=== PATIENT | male | born 1940 | race Caucasian/White ===

== ENCOUNTER 2016-09-24 05:57 | Day surgery (SDC) | payer MEDICARE ==
[2016-09-24] MEDS ORDERED: Bacitracin Oint 1 GM U/D Packet ONE (06:50)
[2016-09-24] MEDS ORDERED: Lidocaine 1% with EPINEPHrine 1:100,000 50 ML MDV ONE (06:50)
[2016-09-24] MEDS ORDERED: Propofol 200 MG/20 ML SDV ONE (07:14)
[2016-09-24] MEDS ORDERED: fentaNYL 100 MCG/2 ML SDV ONE (07:15)
[2016-09-24 09:31] VITALS: BP 113/59
--- NOTE | 2016-09-27 11:11 | OR ---
DATE OF PROCEDURE: 09/24/2016 PREOPERATIVE DIAGNOSIS: Rule out temporal arteritis. POSTOPERATIVE DIAGNOSIS: Rule out temporal arteritis. PROCEDURE: Left temporal artery biopsy ([id number]). ANESTHESIA: Local plus IV sedation. INDICATIONS FOR PROCEDURE: This is a 76-year-old referred per Dr. Pulido at [facility], who saw some abnormalities in the patient's retinal artery, suggestive of possible temporal arteritis. This involved the left side. Given this, a left temporal artery biopsy is to be undertaken. Potential risks of the procedure including bleeding and infection were reviewed, and the patient wishes to proceed. DETAILS OF PROCEDURE: The patient was taken to the operating room and placed in a supine position. The left temporal artery was then mapped out using a Doppler and that area was then prepped and draped. IV sedation was administered, and the area of involvement was anesthetized with 1% lidocaine mixed with Marcaine. The incision was made and carried down through the skin and subcutaneous tissue. A roughly 4 cm segment of the temporal artery was then isolated, and the proximal and distal ends were divided and suture-ligated with 4-0 Vicryl stitch. The vessel in its proximal extent appeared to be perhaps somewhat thickened, although the histologic findings in this case are always somewhat unpredictable based on the gross appearance of the vessel. Deeper soft tissue was then approximated with some 4-0 Vicryl stitch and the skin then closed with a 5-0 Vicryl subcuticular stitch. Dermabond was applied, and the patient was taken to the recovery room in satisfactory condition. There were no evident complications. Adam Booker MD /[id number]
== END 2016-09-24 09:52 | disposition home or self-care (01) ==
LOC: JP.SDS 05:57
PROVIDERS: ATTEND Surgery
DX: M31.6 Other giant cell arteritis (principal)
CPT/HCPCS: 37609; J2704; J3010; 88305

== ENCOUNTER 2016-10-21 09:40 | Inpatient (IN) | payer MEDICARE ==
[~2016-10-21 09:40] MED LIST: Bupivacaine 0.5% 50 ML MDV ONE; Lidocaine 1% with EPINEPHrine 1:100,000 50 ML MDV ONE
[2016-10-21] MEDS: Dextrose 5%-Lactated Ringers 1,000 ML IV SCH ×2 (10:51→17:54)
[2016-10-21] MEDS ORDERED: methylPREDNISolone Sodium Succinate 125 MG/2 ML SDV IVPUSH ONE (11:00)
[2016-10-21] MEDS ORDERED: Propofol 200 MG/20 ML SDV ONE (11:06)
[2016-10-21] MEDS ORDERED: fentaNYL 100 MCG/2 ML SDV ONE (11:07)
--- NOTE | 2016-10-21 11:46 | CT ---
Chest CT History: Soft tissue mass posterior lateral left chest wall. Technique: Unenhanced axial images were obtained from the lung apices extending through the hemidiap hragms. Coronal images were reconstructed. Total DLP: 354. Comparison: Chest CT 27 January [address] 13 January 2016. Findings: A marker is placed at the location of the left chest wall mass. At the posterior lateral margin of t he lower chest wall ninth/10th rib location is a subcutaneous mass measuring 5.2 x 3.3 x 4.8 cm. The re appears be extension into the intercostal space on the left. The Hounsfield units suggest complex fluid. The Hounsfield units measure 9. There is a loculated fluid collection in the adjacent polisher balance screwhead ior left lung base. There is a rind of tissue encompassing the complex fluid. The density of the flu id measures approximately 11 Hounsfield units. The complex encapsulated fluid may reflect empyema. T here has been significant reduction in size of the pleural fluid compared to the prior study. There are extensive calcified mediastinal and hilar granulomas. There is chronic consolidation and v olume loss of the posterior medial left lower lobe. There is scarring and parenchymal retraction inv olving the anterior aspect of the right lower lobe. There are endovascular stents throughout the cam cending thoracic aorta. Limited evaluation of the upper abdomen demonstrates a stable chronic complex cyst involving the brisa l of the pancreas. Impression: 1. Encapsulated complex left pleural effusion. Empyema cannot be excluded. There is chronic consolid ation and volume loss of the left lower lobe. There is a complex extrathoracic fluid collection invo lving the left posterior lateral chest wall at the ninth/10th rib interspace. There is replacement o f fat at the rib interspace. It is uncertain whether the complex fluid collection communicates with the intrathoracic fluid. 2. Extensive granulomatous changes throughout the lungs and mediastinum. 3. Chronic complex lesion of the tail of the pancreas.
[2016-10-21] MEDS ORDERED: Phytonadione 10 MG in Sodium Chloride 0.9% 50 ML IV ONE (13:00)
[2016-10-21] MEDS ORDERED: Gabapentin 300 MG Cap PO SCH ×2 (14:00→16:00)
[2016-10-21] MEDS ORDERED: Enoxaparin 100 MG/1 ML Syringe SUBCUT ONE (14:00)
[2016-10-21] MEDS ORDERED: LORazepam 0.5 MG Tab PO PRN (14:51)
[2016-10-21] MEDS ORDERED: Acetaminophen 500 MG Tab PO PRN (15:00)
--- NOTE | 2016-10-21 15:35 | PCM.CONS ---
H&P History of Present Illness - General Date of Service: 10/21/16 Source of Information: Patient, Family, Provider History Limitations: Reports: No limitations - History of Present Illness Initial Comments - Free Text/Narative: I was asked by Dr. Booker to see Hai regarding chronic medical issues including chronic anticoagulation, Mycobacterium avium complex, celiac disease as well as his more acute issue involving the left pleural effusion and left mid back mass. He reports that he has been feeling well. No recent difficulties with chest pain, weight loss or fevers. He does have some shortness of breath but thinks it's at about his baseline. He has some discomfort in the left lateral part of his back. Pain has been stable for some time. Worse with any sort of pressure. Pain is mild to moderate, achy in nature and does not radiate. He has taken [id number] medications at home with mild relief. No change in bowel or bladder habits. Appetite has been good. Still some mild residual confusion but in general doing fairly well. The plan is for him to have this mass excised today but his INR was elevated at 3.1. - Related Data Allergies/Adverse Reactions: Allergies Allergy/AdvReac Type Severity Reaction Status Date / Time No Known Allergies Allergy Verified 10/21/16 10:04 Home Medications: Home Meds Cholecalciferol (Vitamin D3) [Vitamin D3] 1,000 unit PO QAM 05/10/15 [History] Cyanocobalamin (Vitamin B-12) [Vitamin B-12] 500 mcg SL QAM 05/10/15 [History] Sulfamethoxazole/Trimethoprim [Septra] 1 tab PO MOWEFR 05/10/15 [History] Zinc Gluconate [Zinc] 50 mg PO QAM 05/10/15 [History] predniSONE [Prednisone] 3 mg PO Q48H 05/10/15 [History] Acetaminophen [Tylenol] 500 mg PO Q6H PRN 12/04/15 [History] Aspirin [Tico Chewable Aspirin] 81 mg PO BEDTIME 12/04/15 [History] Ethambutol 1,200 mg PO DAILY 12/04/15 [History] Rifabutin 300 mg PO DAILY 12/04/15 [History] Azithromycin 500 mg PO DAILY 02/05/16 [History] LORazepam [Ativan] 0.5 mg PO Q4HR PRN 03/08/16 [History] Docusate Sodium/Sennosides [Senokot-S] 1 each PO BEDTIME 05/25/16 [History] Gabapentin [Neurontin] 900 mg PO BID 05/25/16 [History] Nortriptyline HCl [Pamelor] 20 mg PO BEDTIME 05/25/16 [History] Pantoprazole Sodium 40 mg PO DAILY 05/25/16 [History] Warfarin [Coumadin] 5 mg PO ASDIRECTED 05/25/16 [History] Gabapentin [Neurontin] 1,200 mg PO BEDTIME 09/22/16 [History] Itraconazole 400 mg PO BID 10/20/16 [History] Past Medical History HEENT History: Reports: Hard of hearing, Impaired vision Cardiovascular History: Reports: Aneurysm Other Cardiovascular History: THORACIC AORTA ATHEROSCLEROSIS Respiratory History: Reports: SOB Other Respiratory History: SARCOIDOSIS. Mycobacterium avium complex infection. reactive airway - Gastrointestinal History: Reports: Colon polyp, GERD, Pancreatitis Other Gastrointestinal History: CELIAC DISEASE. CHRONIC CALCIFIC PANCREATITIS Genitourinary History: Reports: Renal calculus Other Genitourinary History: CKD STAGE 3 - resolved 2011 Musculoskeletal History: Reports: Amputation, Arthritis, Fracture Other Musculoskeletal History: left hand pointer finger Psychiatric History: Reports: Anxiety, Depression Immunologic History: Reports: Immunosuppression Oncologic (Cancer) History: Reports: Basal cell carcinoma Dermatologic History: Reports: Other (see below) Other Dermatologic History: basil cell ca, current shingles-internal - Infectious Disease History Infectious Disease History: Reports: Chicken pox, Measles, Shingles Other Infectious Disease History: MAC Disease. Fungal infection lungs - Past Surgical History Cardiovascular Surgical History: Reports: Other (see below) Other Cardiovascular Surgeries/Procedures: thoracic endovascular aortic graft 11/26/15 Respiratory Surgical History: Reports: Lung Biopsies Other Respiratory Surgeries/Procedures: bronchoscopy with lavage GI Surgical History: Reports: Appendectomy, Cholecystectomy, Colonoscopy, EGD Male Surgical History: Reports: Lithotripsy (ESWL) Musculoskeletal Surgical History: Reports: Amputation Other Musculoskeletal Surgeries/Procedures:: finger amp Oncologic Surgical History: Reports: Lumpectomy Dermatological Surgical History: Reports: Skin biopsy, Other (see below) Social & Family History - Family History Family Medical History: Noncontributory HEENT: Reports: None Cardiac: Reports: Hypertension Respiratory: Reports: Other (see below) Other Respiratory Family Hisory: unknown GI: Reports: Bowel obstruction : Reports: UTI, recurrent Musculoskeletal: Reports: Back pain, chronic Neurological: Reports: Dementia Oncologic: Reports: Cervix, Skin, Uterine - Tobacco Use Smoking Status *Q: Never Smoker Second Hand Smoke Exposure: No - Caffeine Use Caffeine Use: Reports: Coffee Other Caffeine Use: 3-4 cups Q day - Alcohol Use Alcohol Use History: No - Recreational Drug Use Recreational Drug Use: No - Living Situation & Occupation Living situation: Reports: Occupation: retired (Lives with [facility], [facility]. Has 4 children 2 sons 2 daughters) H&P Review of Systems - Review of Systems: Review Of Systems: See Below Free Text/Narrative: A complete 12 point review of systems was obtained. Pertinent positives and negatives are noted in the history of present illness. All other systems were reviewed and were negative except as noted. Exam - Exam Exam: See Below - Vital Signs Vital Signs: Last Vital Signs Temp 36.6 C 10/21/16 09:57 Pulse 90 10/21/16 09:57 Resp 16 10/21/16 09:57 BP 129/68 10/21/16 09:57 Pulse Ox 97 10/21/16 09:57 Weight: 78.608 kg - Exam Quality Assessment: supplemental oxygen. No: urinary catheter General: alert, oriented, cooperative. No: mild distress HEENT: Conjunctiva clear. No: Mucosa moist & pink (dry), Scleral icterus Neck: supple, trachea midline. No: lymphadenopathy Lungs: Normal respiratory effort, Decreased breath sounds (left lung base), Rales (few right lung base) Cardiovascular: regular rate, regular rhythm Abdomen: normal bowel sounds, soft. No: distention, tenderness Back Exam: normal inspection, full range of motion Extremities: normal pulses, edema (mild pitting ankle edema) Skin: warm, dry, intact Neuro Extensive - Mental Status: alert, oriented x3 Neuro Extensive - Motor, Sensory, Reflexes: CN II-XII intact. No: dysarthria, abnormal motor, tremor Psychiatric: alert, normal affect - Patient Data Lab Results last 24 hrs: Laboratory Results - last 24 hr 10/21/16 10/21/16 10/21/16 Range/Units 10:02 10:02 10:02 WBC 6.2 (4.5-11.0) K/uL RBC 3.96 L (4.30-5.90) M/uL Hgb 10.6 L (12.0-15.0) g/dL Hct 34.7 L (40.0-54.0) % MCV 88 (80-98) fL MCH 27 (27-31) pg MCHC 31 L (32-36) % Plt Count 435 H (150-400) K/uL PT 34.1 H (9.5-12.0) sec INR 3.11 H D (0.80-1.20) Sodium 139 L (140-148) mmol/L Potassium 3.9 (3.6-5.2) mmol/L Chloride 102 (100-108) mmol/L Carbon Dioxide 29 (21-32) mmol/L Anion Gap 11.9 (5.0-14.0) mmol/L BUN 14 (7-18) mg/dL Creatinine 1.2 (0.8-1.3) mg/dL Est Cr Clr Drug Dosing 56.58 mL/min Estimated GFR (MDRD) 59 L (>60) Glucose 99 (74-106) mg/dL Calcium 8.6 (8.5-10.1) mg/dL Total Bilirubin 1.0 D (0.2-1.0) mg/dL AST 33 (15-37) U/L ALT 28 (12-78) U/L Alkaline Phosphatase 550 H (46-116) U/L Total Protein 7.3 (6.4-8.2) g/dL Albumin 2.7 L (3.4-5.0) g/dL Globulin 4.6 H (2.3-3.5) g/dL Albumin/Globulin Ratio 0.6 L (1.2-2.2) Result Diagrams: 10/21/16 10:02 10/21/16 10:02 Imaging Impressions last 24 hrs: CT of the chest - complex pleural effusion on the left with encapsulation concerning for empyema. Also a complex appearing fluid filled mass left lateral chest wall near the pleural effusion/possible empyema. Consult PN Assessment/Plan Procedures: Procedures AIRWAY INHALATION TREATMENT (01/13/16) ALANINE AMINO (ALT) (SGPT) (12/21/15) ASSAY ALKALINE PHOSPHATASE (12/21/15) ASSAY OF AMYLASE (01/13/16) ASSAY OF CREATININE (12/21/15) ASSAY OF LACTIC ACID (01/13/16) ASSAY OF LIPASE (01/13/16) ASSAY OF MAGNESIUM (01/22/16) ASSAY OF PROTEIN OTHER (01/13/16) ASSAY OF SERUM POTASSIUM (12/21/15) ASSAY PH BODY FLUID NOS (01/13/16) BLOOD CULTURE FOR BACTERIA (02/25/16) BODY FLUID CELL COUNT (01/13/16) C-REACTIVE PROTEIN (02/25/16) CHEST WALL MANIPULATION (01/13/16) CHEST X-RAY 1 VIEW FRONTAL (01/26/16) CHEST X-RAY 2VW FRONTAL&LATL (02/25/16) COLLECT BLOOD FROM PICC (12/21/15) COMPLETE CBC AUTOMATED (02/25/16) COMPLETE CBC W/AUTO DIFF WBC (01/26/16) COMPREHEN METABOLIC PANEL (01/26/16) CT ABD & PELV W/CONTRAST (05/07/15) CT ABD & PELVIS W/O CONTRAST (01/13/16) CT HEAD/BRAIN W/O DYE (01/26/16) CT THORAX W/DYE (01/26/16) CT THORAX W/O DYE (05/30/16) CULTURE OTHR SPECIMN AEROBIC (05/30/16) CULTURE SCREEN ONLY (01/13/16) CYTOPATH CELL ENHANCE TECH (05/30/16) DX BRONCHOSCOPE/LAVAGE (05/30/16) ELECTROCARDIOGRAM REPORT (01/26/16) ELECTROCARDIOGRAM TRACING (01/26/16) EMERGENCY DEPT VISIT (03/08/16) EMERGENCY DEPT VISIT (02/25/16) EMERGENCY DEPT VISIT (01/26/16) EMERGENCY DEPT VISIT (06/01/15) EMERGENCY DEPT VISIT (06/01/15) EMERGENCY DEPT VISIT (05/10/15) EMERGENCY DEPT VISIT (05/10/15) EXTRACRANIAL BILAT STUDY (09/16/16) FUNGUS ISOLATION CULTURE (05/30/16) GLUCOSE BLOOD TEST (01/26/16) GLUCOSE OTHER FLUID (01/13/16) HYDRATE IV INFUSION ADD-ON (06/01/15) INJ FORAMEN EPIDURAL C/T (02/19/16) LACTATE (LD) (LDH) ENZYME (01/13/16) METABOLIC PANEL TOTAL CA (02/25/16) MYCOBACTERIA CULTURE (05/30/16) OFFICE/OUTPATIENT VISIT NEW (12/15/15) PROTHROMBIN TIME (05/30/16) PT EVAL HIGH COMPLEX 45 MIN (07/26/16) PT EVALUATION (01/26/16) ROUTINE VENIPUNCTURE (05/30/16) SELF CARE MNGMENT TRAINING (01/26/16) SMEAR FLUORESCENT/ACID STAI (05/30/16) SMEAR GRAM STAIN (05/30/16) SPECIMEN INFECT AGNT CONCNTJ (05/30/16) TEMPORAL ARTERY PROCEDURE (09/24/16) THER/PROPH/DIAG INJ IV PUSH (06/01/15) THER/PROPH/DIAG INJ SC/IM (01/22/16) THER/PROPH/DIAG IV INF ADDON (12/04/15) THER/PROPH/DIAG IV INF INIT (12/04/15) THERAPEUTIC ACTIVITIES (01/26/16) THERAPEUTIC EXERCISES (08/29/16) TISSUE EXAM BY PATHOLOGIST (01/26/16) TISSUE EXAM FOR FUNGI (05/30/16) TRANSFERASE (AST) (SGOT) (12/21/15) TX/PRO/DX INJ NEW DRUG ADDON (12/04/15) TX/PRO/DX INJ SAME DRUG RECREATION PROGRAM SPECIALIST (06/01/15) URINALYSIS AUTO W/SCOPE (02/25/16) URINE CULTURE/COLONY COUNT (02/25/16) (1) Mass of subcutaneous tissue of back SNOMED Code(s): 188637383373642 Code(s): R22.2 - LOCALIZED SWELLING, MASS AND LUMP, TRUNK Current Visit: Yes (2) Pleural effusion on left SNOMED Code(s): 89173329 Code(s): J90 - PLEURAL EFFUSION, NOT ELSEWHERE CLASSIFIED Current Visit: Yes (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 SNOMED Code(s): 214460905 Code(s): A31.0 - PULMONARY MYCOBACTERIAL INFECTION Priority: High Current Visit: No (4) Celiac disease SNOMED Code(s): 625890477 Code(s): K90.0 - CELIAC DISEASE Priority: Medium Current Visit: No (5) Sarcoidosis of lung SNOMED Code(s): 69063738 Code(s): D86.0 - SARCOIDOSIS OF LUNG Priority: High Current Visit: No (6) Stage III chronic kidney disease SNOMED Code(s): 087969960 Code(s): N18.3 - CHRONIC KIDNEY DISEASE, STAGE 3 (MODERATE) Current Visit: No Problem List Initiated/Reviewed/Updated: Yes Plan: Assessment and plan - Left posterolateral chest mass - appears to be fluid-filled, possibly communicating with pleural effusion/possible empyema. Excision is planned but INR was elevated today. He has received vitamin K. -Hold warfarin -Repeat INR -Surgical intervention per Dr. Booker Mycobacterium avium complex - chronic infection, on triple antibiotic therapy. -Continue home medications Sarcoidosis - disease is stable at this time. -Continue home medications Celiac disease - no active symptoms. -Gluten-free diet Maintenance issues - - DVT prophylaxis - enoxaparin - GI prophylaxis - PPI - Nutrition - gluten-free, n.p.o. after midnight José Pearl M.D. Requesting Provider: Dr Booker Date Consult Requested: 10/21/16 Reason for Consult: medical management of complex surgical patient Patient History Reviewed: Yes Admission H&P Reviewed: No (not available) Notified Requestor: No Time Spent (in minutes): 40
[2016-10-21] MEDS ORDERED: ITRACONAZOLE 100 MG PO SCH (16:00)
[2016-10-21] MEDS ORDERED: predniSONE 1 MG Tab PO ONE (16:00)
[2016-10-21] MEDS: ETHAMBUTOL 400 MG PO SCH (16:12)
[2016-10-21] MEDS: RIFABUTIN 150 MG PO SCH (16:13)
[2016-10-21] MEDS ORDERED: Azithromycin 250 MG Tab PO ONE (16:15)
[2016-10-21] MEDS: Acetaminophen 500 MG Tab PO PRN (16:50)
[2016-10-21] MEDS: ITRACONAZOLE 100 MG PO SCH (18:33)
[2016-10-21] MEDS: NORTRIPTYLINE 10 MG PO SCH (20:43)
[2016-10-21] MEDS: Gabapentin 400 MG Cap PO SCH (20:44)
[2016-10-22] MEDS: Dextrose 5%-Lactated Ringers 1,000 ML IV SCH ×3 (03:59→19:31)
[2016-10-22] MEDS ORDERED: Bupivacaine 0.5%/EPINEPHrine 1:200,000 50 ML MDV ONE (06:40)
[2016-10-22] MEDS ORDERED: Dexamethasone 4 MG/ML SDV ONE (07:29)
[2016-10-22] MEDS ORDERED: Ondansetron 4 MG/2 ML SDV ONE (07:29)
[2016-10-22] MEDS ORDERED: Neostigmine Methylsulfate 1 MG/ML 5 ML Syringe ONE (07:29)
[2016-10-22] MEDS ORDERED: fentaNYL 250 MCG/5 ML SDV ONE (07:29)
[2016-10-22] MEDS ORDERED: Succinylcholine/Normal Saline 200 MG/10 ML Syringe ONE (07:29)
[2016-10-22] MEDS ORDERED: Rocuronium 50 MG/5 ML Vial ONE (07:29)
[2016-10-22] MEDS ORDERED: Propofol 200 MG/20 ML SDV ONE (07:29)
[2016-10-22] MEDS: Pantoprazole 40 MG Tab.CR PO SCH ×2 (08:03→10:45)
[2016-10-22] MEDS: Gabapentin 300 MG Cap PO SCH ×2 (08:03→12:59)
[2016-10-22] MEDS ORDERED: Lactated Ringers 1,000 ML ONE (08:08)
[2016-10-22] MEDS ORDERED: Naloxone 0.4 MG/ML SDV IVPUSH PRN (08:44)
[2016-10-22] MEDS ORDERED: RIFABUTIN PO SCH (09:00)
[2016-10-22] MEDS ORDERED: fentaNYL 100 MCG/2 ML SDV ONE (09:05)
[2016-10-22] MEDS: predniSONE 1 MG Tab PO SCH (10:36)
--- NOTE | 2016-10-22 11:57 | PCM.CONSN ---
- General Info Date of Service: 10/22/16 - Review of Systems General: Denies: Fever Pulmonary: Reports: shortness of breath Cardiovascular: Denies: Chest Pain Systems Review Comment:: No acute events overnight. INR is normal this morning. Patient went to the operating room for incision and drainage of a left postero-lateral chest abscess and also had evacuation of a left lung empyema and partial decortication of the left lung empyema. He is stable postoperatively. He complains of mild left-sided chest pain. He does not feel short of breath. He is on some supplemental oxygen at this time but oxygenation is acceptable. No complaints of abdominal pain or nausea. Gram stain from the surgical samples did not show organisms such as bacteria or fungus. - Patient Data Vitals - most recent: Last Vital Signs Temp 35.9 C 10/22/16 10:30 Pulse 69 10/22/16 11:12 Resp 16 10/22/16 11:12 BP 135/73 10/22/16 11:12 Pulse Ox 94 L 10/22/16 11:12 Weight - most recent: 78.608 kg I&O - last 24 hours: Intake & Output 10/21/16 10/22/16 10/22/16 22:59 06:59 14:59 Intake Total 1254 1155 Output Total 500 700 Balance 754 455 Lab Results last 24 hrs: Laboratory Results - last 24 hr 10/21/16 10/21/16 10/22/16 Range/Units 19:00 19:00 05:32 PT 17.4 H 11.5 (9.5-12.0) sec INR 1.62 H 1.08 (0.80-1.20) Blood Type A POSITIVE Gel Antibody Screen Negative [place] Results last 24 hrs: Microbiology 10/22/16 08:41 Gram Stain - Final Chest - Left 10/22/16 08:44 Gram Stain - Final Chest - Left 10/22/16 08:49 Gram Stain - Final Chest - Left 10/22/16 08:44 CHYNA Preparation - Final Other - Chest 10/22/16 08:49 CHYNA Preparation - Final Other - Chest 10/22/16 08:41 CHYNA Preparation - Final Other - Left Med Orders - Current: Current Medications Acetaminophen (Tylenol Extra Strength) 1,000 mg PO BID PRN PRN Reason: PAIN Last Admin: 10/21/16 16:50 Dose: 1,000 mg Aspirin (Halfprin) 81 mg PO Q24H [facility] Azithromycin (Zithromax) 500 mg PO DAILY@1400 [facility] Cholecalciferol (Vitamin D3) 1,000 units PO DAILY [facility] Enoxaparin Sodium (Lovenox) 60 mg SUBCUT Q12H [facility] Gabapentin (Neurontin) 1,200 mg PO BEDTIME [facility] Last Admin: 10/21/16 20:44 Dose: 1,200 mg Gabapentin (Neurontin) 900 mg PO BID@0700,1400 [facility] Last Admin: 10/22/16 08:03 Dose: Not Given Hydromorphone HCl (Dilaudid Founder And President 15 Mg In Ns 30 Ml) 0 mg IV ASDIRECTED PRN; Protocol PRN Reason: Pain Dextrose/Lactated Ringer's (Dextrose 5%-Lactated Ringers) 1,000 mls @ 100 mls/ hr IV ASDIRECTED [facility] Last Admin: 10/22/16 10:34 Dose: 100 mls/hr Lorazepam (Ativan) 0.5 mg PO Q4H PRN PRN Reason: NAUSEA Naloxone HCl (Narcan) 0.1 mg IVPUSH Q2M PRN PRN Reason: Respiratory Distress Nortriptyline HCl (Nortriptyline) 20 mg PO BEDTIME [facility] Last Admin: 10/21/16 20:43 Dose: 20 mg Pantoprazole Sodium (Protonix) 40 mg PO ACBREAKFAST [facility] Last Admin: 10/22/16 10:45 Dose: 40 mg Ethambutol 400mg (TabsPom) 0 each PO DAILY@1400 [facility] Last Admin: 10/21/16 16:12 Dose: 3 each Rifabutin 300mg Cap* (*Pom) 0 each PO DAILY [facility] Rifabutin 150mg Cap* (*Pom) 0 each PO DAILY@1400 [facility] Last Admin: 10/21/16 16:13 Dose: 2 each Itraconazole 100mg (Pom) 0 each PO BID@0900,1900 [facility] Last Admin: 10/21/16 18:33 Dose: 4 each Prednisone (Prednisone) 3 mg PO DAILY [facility] Last Admin: 10/22/16 10:36 Dose: 3 mg Trimethoprim/Sulfamethoxazole (Septra Ds) 1 tab PO MoWeFr@0900 [facility] Warfarin Sodium (Coumadin) 10 mg PO ONETIME ONE Stop: 10/22/16 13:01 Discontinued Medications Acetaminophen (Tylenol Extra Strength) 500 mg PO Q6H PRN PRN Reason: PAIN Azithromycin (Zithromax) 500 mg PO ONETIME ONE Stop: 10/21/16 16:16 Last Admin: 10/21/16 16:13 Dose: 500 mg Bupivacaine HCl (Marcaine 0.5%) Confirm Administered Dose 50 ml .ROUTE .STK-MED ONE Stop: 10/21/16 06:57 Bupivacaine HCl/Epinephrine Bitart (Marcaine 0.5%/Epinephrine 1:200,000) Confirm Administered Dose 50 ml .ROUTE .STK-MED ONE Stop: 10/22/16 06:41 Last Admin: 10/22/16 08:55 Dose: 12 ml Dexamethasone (Dexamethasone) Confirm Administered Dose 4 mg .ROUTE .STK-MED ONE Stop: 10/22/16 07:30 Enoxaparin Sodium (Lovenox) 100 mg SUBCUT ONETIME ONE Stop: 10/21/16 14:01 Last Admin: 10/21/16 14:03 Dose: 100 mg Fentanyl (Sublimaze) Confirm Administered Dose 100 mcg .ROUTE .STK-MED ONE Stop: 10/21/16 11:08 Fentanyl (Sublimaze) Confirm Administered Dose 250 mcg .ROUTE .STK-MED ONE Stop: 10/22/16 07:30 Fentanyl (Sublimaze) Confirm Administered Dose 100 mcg .ROUTE .STK-MED ONE Stop: 10/22/16 09:06 Gabapentin (Neurontin) 900 mg PO BID@0700,1400 [facility] Last Admin: 10/21/16 16:17 Dose: 900 mg Gabapentin (Neurontin) 900 mg PO BID@0700,1400 [facility] Glycopyrrolate () Confirm Administered Dose 1 mg .ROUTE .STK-MED ONE Stop: 10/22/16 07:30 Phytonadione 10 mg/ Sodium (Chloride) 51 mls @ 25 mls/hr IV ONETIME ONE Stop: 10/21/16 15:02 Last Admin: 10/21/16 12:51 Dose: 25 mls/hr Lactated Ringer's (Ringers, Lactated) Confirm Administered Dose 1,000 mls @ as directed .ROUTE .STK-MED ONE Stop: 10/22/16 08:09 Lidocaine/Epinephrine (Xylocaine 1% With Epinephrine 1:100,000) Confirm Administered Dose 50 ml .ROUTE .STK-MED ONE Stop: 10/21/16 06:57 Methylprednisolone Sodium Succinate (Solu-Medrol) 60 mg IVPUSH ONETIME ONE Stop: 10/21/16 11:01 Last Admin: 10/21/16 11:23 Dose: 60 mg Neostigmine Methylsulfate (Neostigmine) Confirm Administered Dose 5 mg .ROUTE .STK-MED ONE Stop: 10/22/16 07:30 Ondansetron HCl (Zofran) Confirm Administered Dose 4 mg .ROUTE .STK-MED ONE Stop: 10/22/16 07:30 Itraconazole 100mg (Pom) 0 each PO DAILY@1400 [facility] Last Admin: 10/21/16 18:35 Dose: Not Given Prednisone (Prednisone) 3 mg PO ONETIME ONE Stop: 10/21/16 16:01 Last Admin: 10/21/16 16:11 Dose: 3 mg Propofol (Diprivan 20 Ml) Confirm Administered Dose 200 mg .ROUTE .STK-MED ONE Stop: 10/21/16 11:07 Propofol (Diprivan 20 Ml) Confirm Administered Dose 200 mg .ROUTE .STK-MED ONE Stop: 10/22/16 07:30 Rocuronium [place] (Zemuron) Confirm Administered Dose 50 mg .ROUTE .STK-MED ONE Stop: 10/22/16 07:30 Succinylcholine Chloride (Succinylcholine In Ns Pf) Confirm Administered Dose 200 mg .ROUTE .STK-MED ONE Stop: 10/22/16 07:30 - Exam Quality Assessment: supplemental oxygen. No: urine catheter General: alert, oriented, cooperative, no acute distress Neck: supple Lungs: Normal respiratory effort, Decreased breath sounds (left lung base), Rales (rare left lung base) Cardiovascular: Regular Rate, Regular Rhythm Abdomen: soft, no tenderness, no distension Extremities: no cyanosis, edema (mild pitting edema both ankles) Skin: warm, dry Psy/Mental Status: alert, normal affect Consult PN Assessment/Plan POD#: 0 Procedures: Procedures AIRWAY INHALATION TREATMENT (01/13/16) ALANINE AMINO (ALT) (SGPT) (12/21/15) ASSAY ALKALINE PHOSPHATASE (12/21/15) ASSAY OF AMYLASE (01/13/16) ASSAY OF CREATININE (12/21/15) ASSAY OF LACTIC ACID (01/13/16) ASSAY OF LIPASE (01/13/16) ASSAY OF MAGNESIUM (01/22/16) ASSAY OF PROTEIN OTHER (01/13/16) ASSAY OF SERUM POTASSIUM (12/21/15) ASSAY PH BODY FLUID NOS (01/13/16) BLOOD CULTURE FOR BACTERIA (02/25/16) BODY FLUID CELL COUNT (01/13/16) C-REACTIVE PROTEIN (02/25/16) CHEST WALL MANIPULATION (01/13/16) CHEST X-RAY 1 VIEW FRONTAL (01/26/16) CHEST X-RAY 2VW FRONTAL&LATL (02/25/16) COLLECT BLOOD FROM PICC (12/21/15) COMPLETE CBC AUTOMATED (02/25/16) COMPLETE CBC W/AUTO DIFF WBC (01/26/16) COMPREHEN METABOLIC PANEL (01/26/16) CT ABD & PELV W/CONTRAST (05/07/15) CT ABD & PELVIS W/O CONTRAST (01/13/16) CT HEAD/BRAIN W/O DYE (01/26/16) CT THORAX W/DYE (01/26/16) CT THORAX W/O DYE (05/30/16) CULTURE OTHR SPECIMN AEROBIC (05/30/16) CULTURE SCREEN ONLY (01/13/16) CYTOPATH CELL ENHANCE TECH (05/30/16) DX BRONCHOSCOPE/LAVAGE (05/30/16) ELECTROCARDIOGRAM REPORT (01/26/16) ELECTROCARDIOGRAM TRACING (01/26/16) EMERGENCY DEPT VISIT (03/08/16) EMERGENCY DEPT VISIT (02/25/16) EMERGENCY DEPT VISIT (01/26/16) EMERGENCY DEPT VISIT (06/01/15) EMERGENCY DEPT VISIT (06/01/15) EMERGENCY DEPT VISIT (05/10/15) EMERGENCY DEPT VISIT (05/10/15) EXTRACRANIAL BILAT STUDY (09/16/16) FUNGUS ISOLATION CULTURE (05/30/16) GLUCOSE BLOOD TEST (01/26/16) GLUCOSE OTHER FLUID (01/13/16) HYDRATE IV INFUSION ADD-ON (06/01/15) INJ FORAMEN EPIDURAL C/T (02/19/16) LACTATE (LD) (LDH) ENZYME (01/13/16) METABOLIC PANEL TOTAL CA (02/25/16) MYCOBACTERIA CULTURE (05/30/16) OFFICE/OUTPATIENT VISIT NEW (12/15/15) PROTHROMBIN TIME (05/30/16) PT EVAL HIGH COMPLEX 45 MIN (07/26/16) PT EVALUATION (01/26/16) ROUTINE VENIPUNCTURE (05/30/16) SELF CARE MNGMENT TRAINING (01/26/16) SMEAR FLUORESCENT/ACID STAI (05/30/16) SMEAR GRAM STAIN (05/30/16) SPECIMEN INFECT AGNT CONCNTJ (05/30/16) TEMPORAL ARTERY PROCEDURE (09/24/16) THER/PROPH/DIAG INJ IV PUSH (06/01/15) THER/PROPH/DIAG INJ SC/IM (01/22/16) THER/PROPH/DIAG IV INF ADDON (12/04/15) THER/PROPH/DIAG IV INF INIT (12/04/15) THERAPEUTIC ACTIVITIES (01/26/16) THERAPEUTIC EXERCISES (08/29/16) TISSUE EXAM BY PATHOLOGIST (01/26/16) TISSUE EXAM FOR FUNGI (05/30/16) TRANSFERASE (AST) (SGOT) (12/21/15) TX/PRO/DX INJ NEW DRUG ADDON (12/04/15) TX/PRO/DX INJ SAME DRUG PROCESS PLANT OPERATOR (06/01/15) URINALYSIS AUTO W/SCOPE (02/25/16) URINE CULTURE/COLONY COUNT (02/25/16) (1) Mass of subcutaneous tissue of back SNOMED Code(s): 058351879968221 Code(s): R22.2 - LOCALIZED SWELLING, MASS AND LUMP, TRUNK Current Visit: Yes (2) Pleural effusion on left SNOMED Code(s): 06883952 Code(s): J90 - PLEURAL EFFUSION, NOT ELSEWHERE CLASSIFIED Current Visit: Yes (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 SNOMED Code(s): 630248623 Code(s): A31.0 - PULMONARY MYCOBACTERIAL INFECTION Priority: High Current Visit: No (4) Celiac disease SNOMED Code(s): 483939818 Code(s): K90.0 - CELIAC DISEASE Priority: Medium Current Visit: No (5) Sarcoidosis of lung SNOMED Code(s): 18324319 Code(s): D86.0 - SARCOIDOSIS OF LUNG Priority: High Current Visit: No (6) Stage III chronic kidney disease SNOMED Code(s): 222304364 Code(s): N18.3 - CHRONIC KIDNEY DISEASE, STAGE 3 (MODERATE) Current Visit: No Problem List Initiated/Reviewed/Updated: Yes My Orders last 24 hours: My Active Orders 10/21/16 21:00 Acetaminophen [Tylenol Extra Strength] 1,000 mg PO BID PRN Plan: Assessment and plan - Left posterolateral chest mass - status post incision and drainage of abscess. No organisms seen on Gram stain. -Restart warfarin when safe postoperatively -Followup cultures -Postop cares per Dr. Booker Left lung empyema - status post evacuation and partial decortication. Gram stain did not show any organisms. No significant pain. He does have a chest tube in place. He is not currently on antibiotics other than his chronic suppressive medications. -Followup cultures -Chest tube management per Dr. Booker Mycobacterium avium complex - chronic infection, on triple antibiotic therapy. -Continue home medications Sarcoidosis - disease is stable at this time. -Continue home medications Celiac disease - no active symptoms. -Gluten-free diet Maintenance issues - - DVT prophylaxis - enoxaparin - GI prophylaxis - PPI - Nutrition - gluten-free José Pearl M.D.
[2016-10-22] MEDS: ITRACONAZOLE 100 MG PO SCH ×2 (12:55→20:12)
[2016-10-22] MEDS: Enoxaparin 60 MG/0.6 ML Syringe SUBCUT SCH ×2 (12:56→22:53)
[2016-10-22] MEDS: Cholecalciferol (Vitamin D3) 1,000 Unit Tab PO SCH (12:57)
[2016-10-22] MEDS ORDERED: Warfarin 5 MG Tab PO ONE (13:00)
[2016-10-22] MEDS: ETHAMBUTOL 400 MG PO SCH (13:02)
[2016-10-22] MEDS: RIFABUTIN 150 MG PO SCH (13:04)
[2016-10-22] MEDS: Azithromycin 250 MG Tab PO SCH (13:05)
[2016-10-22] MEDS: Aspirin 81 MG Tab.EC PO SCH (18:28)
[2016-10-22] MEDS: NORTRIPTYLINE 10 MG PO SCH (20:12)
[2016-10-22] MEDS: Gabapentin 400 MG Cap PO SCH (20:13)
[2016-10-23] MEDS: Dextrose 5%-Lactated Ringers 1,000 ML IV SCH ×2 (05:33→18:20)
[2016-10-23] MEDS: Gabapentin 300 MG Cap PO SCH ×2 (07:28→14:17)
[2016-10-23] MEDS: Pantoprazole 40 MG Tab.CR PO SCH (07:28)
[2016-10-23] MEDS: ITRACONAZOLE 100 MG PO SCH ×2 (08:37→19:21)
[2016-10-23] MEDS: Cholecalciferol (Vitamin D3) 1,000 Unit Tab PO SCH (08:38)
[2016-10-23] MEDS: predniSONE 1 MG Tab PO SCH (08:53)
[2016-10-23] MEDS ORDERED: ZINC 30 MG PO SCH (09:00)
[2016-10-23] MEDS ORDERED: Aspirin 81 MG Tab.EC PO SCH (09:00)
--- NOTE | 2016-10-23 09:01 | PCM.CONSN ---
- General Info Date of Service: 10/23/16 Functional Status: Reports: pain controlled, tolerating diet - Review of Systems General: Reports: Weakness. Denies: Fever Pulmonary: Denies: shortness of breath Neurological: Reports: Confusion Systems Review Comment:: no acute events overnight. He is a little bit confused today and does not remember me even though I have taken care of him off and on for years. He reports excellent pain control. He has had mild hypoxia overnight. Chest tube drainage has been approximately 120 mL since surgery. Cultures are negative so far. No complaints of abdominal pain or nausea. - Patient Data Vitals - most recent: Last Vital Signs Temp 35.0 C L 10/23/16 07:00 Pulse 88 10/23/16 07:00 Resp 18 10/23/16 07:00 BP 119/67 10/23/16 07:00 Pulse Ox 92 L 10/23/16 07:36 Weight - most recent: 78.608 kg I&O - last 24 hours: Intake & Output 10/22/16 10/23/16 10/23/16 22:59 06:59 14:59 Intake Total 1511 2314 Output Total 150 2010 Balance 1361 304 Lab Results last 24 hrs: Laboratory Results - last 24 hr 10/23/16 Range/Units 04:00 PT 11.0 (9.5-12.0) sec INR 1.04 (0.80-1.20) [place] Results last 24 hrs: Microbiology 10/22/16 08:49 Gram Stain - Final Chest - Left Wound Culture - Preliminary NO GROWTH AFTER 1 DAY Anaerobic Culture - Preliminary NO GROWTH AFTER 1 DAY 10/22/16 08:44 Gram Stain - Final Chest - Left Wound Culture - Preliminary NO GROWTH AFTER 1 DAY Anaerobic Culture - Preliminary NO GROWTH AFTER 1 DAY 10/22/16 08:41 Gram Stain - Final Chest - Left Wound Culture - Preliminary NO GROWTH AFTER 1 DAY Anaerobic Culture - Preliminary NO GROWTH AFTER 1 DAY 10/22/16 08:44 CHYNA Preparation - Final Other - Chest 10/22/16 08:49 CHYNA Preparation - Final Other - Chest 10/22/16 08:41 [facility] Preparation - Final Other - Left Med Orders - Current: Current Medications Acetaminophen (Tylenol Extra Strength) 1,000 mg PO BID PRN PRN Reason: PAIN Last Admin: 10/21/16 16:50 Dose: 1,000 mg Aspirin (Halfprin) 81 mg PO Q24H [facility]S [facility]CLUDE 234 BEDS AT [facility] Last Admin: 10/22/16 18:28 Dose: 81 mg Azithromycin (Zithromax) 500 mg PO DAILY@1400 [facility]S [facility]CLUDE 234 BEDS AT [facility] Last Admin: 10/22/16 13:05 Dose: 500 mg Cholecalciferol (Vitamin D3) 1,000 units PO DAILY [facility]S [facility]CLUDE 234 BEDS AT [facility] Last Admin: 10/23/16 08:38 Dose: 1,000 units Enoxaparin Sodium (Lovenox) 60 mg SUBCUT Q12H [facility]S [facility]CLUDE 234 BEDS AT [facility] Last Admin: 10/22/16 22:53 Dose: 60 mg Gabapentin (Neurontin) 1,200 mg PO BEDTIME [facility]S [facility]CLUDE 234 BEDS AT [facility] Last Admin: 10/22/16 20:13 Dose: 1,200 mg Gabapentin (Neurontin) 900 mg PO BID@0700,1400 [facility]S [facility]CLUDE 234 BEDS AT [facility] Last Admin: 10/23/16 07:28 Dose: 900 mg Hydromorphone HCl (Dilaudid Pool Table Operator 15 Mg In Ns 30 Ml) 0 mg IV ASDIRECTED PRN; Protocol PRN Reason: Pain Dextrose/Lactated Ringer's (Dextrose 5%-Lactated Ringers) 1,000 mls @ 60 mls/ hr IV ASDIRECTED COUNTS INCLUDE 234 BEDS AT [facility] Lorazepam (Ativan) 0.5 mg PO Q4H PRN PRN Reason: NAUSEA Last Admin: 10/22/16 22:53 Dose: 0.5 mg Naloxone HCl (Narcan) 0.1 mg IVPUSH Q2M PRN PRN Reason: Respiratory Distress Nortriptyline HCl (Nortriptyline) 20 mg PO BEDTIME [facility] 234 BEDS [facility] Last Admin: 10/22/16 20:12 Dose: 20 mg Pantoprazole Sodium (Protonix) 40 mg PO ACBREAKFAST COUNTS INCLUDE 234 BEDS AT [facility] Last Admin: 10/23/16 07:28 Dose: 40 mg Ethambutol 400mg (TabsPom) 0 each PO DAILY@1400 [facility]S INCLUDE 234 BEDS AT [facility] Last Admin: 10/22/16 13:02 Dose: 1 each Rifabutin 150mg Cap* (*Pom) 0 each PO DAILY@1400 [facility]S INCLUDE 234 BEDS AT [facility] Last Admin: 10/22/16 13:04 Dose: 1 each Itraconazole 100mg (Pom) 0 each PO BID@0900,1900 [facility]S INCLUDE 234 BEDS AT [facility] Last Admin: 10/23/16 08:37 Dose: 1 each Zinc 50mg (Ptom) 0 each PO DAILY [facility]S INCLUDE 234 BEDS AT [facility] Prednisone (Prednisone) 3 mg PO DAILY [facility]S [facility]CLUDE 234 BEDS AT [facility] Last Admin: 10/23/16 08:53 Dose: 3 mg Trimethoprim/Sulfamethoxazole (Septra Ds) 1 tab PO MoWeFr@0900 COUNTS INCLUDE 234 BEDS AT [facility] Warfarin Sodium (Coumadin) 7.5 mg PO ONETIME ONE Stop: 10/23/16 13:01 Discontinued Medications Acetaminophen (Tylenol Extra Strength) 500 mg PO Q6H PRN PRN Reason: PAIN Azithromycin (Zithromax) 500 mg PO ONETIME ONE Stop: 10/21/16 16:16 Last Admin: 10/21/16 16:13 Dose: 500 mg Bupivacaine HCl (Marcaine 0.5%) Confirm Administered Dose 50 ml .ROUTE .STK-MED ONE Stop: 10/21/16 06:57 Bupivacaine HCl/Epinephrine Bitart (Marcaine 0.5%/Epinephrine 1:200,000) Confirm Administered Dose 50 ml .ROUTE .STK-MED ONE Stop: 10/22/16 06:41 Last Admin: 10/22/16 08:55 Dose: 12 ml Dexamethasone (Dexamethasone) Confirm Administered Dose 4 mg .ROUTE .STK-MED ONE Stop: 10/22/16 07:30 Enoxaparin Sodium (Lovenox) 100 mg SUBCUT ONETIME ONE Stop: 10/21/16 14:01 Last Admin: 10/21/16 14:03 Dose: 100 mg Fentanyl (Sublimaze) Confirm Administered Dose 100 mcg .ROUTE .STK-MED ONE Stop: 10/21/16 11:08 Fentanyl (Sublimaze) Confirm Administered Dose 250 mcg .ROUTE .STK-MED ONE Stop: 10/22/16 07:30 Fentanyl (Sublimaze) Confirm Administered Dose 100 mcg .ROUTE .STK-MED ONE Stop: 10/22/16 09:06 Gabapentin (Neurontin) 900 mg PO BID@0700,1400 COUNTS INCLUDE 234 BEDS AT [facility] Last Admin: 10/21/16 16:17 Dose: 900 mg Gabapentin (Neurontin) 900 mg PO BID@0700,1400 COUNTS INCLUDE 234 BEDS AT [facility] Glycopyrrolate () Confirm Administered Dose 1 mg .ROUTE .STK-MED ONE Stop: 10/22/16 07:30 Dextrose/Lactated Ringer's (Dextrose 5%-Lactated Ringers) 1,000 mls @ 100 mls/ hr IV ASDIRECTED COUNTS INCLUDE 234 BEDS AT [facility] Last Admin: 10/23/16 05:33 Dose: 100 mls/hr Phytonadione 10 mg/ Sodium (Chloride) 51 mls @ 25 mls/hr IV ONETIME ONE Stop: 10/21/16 15:02 Last Admin: 10/21/16 12:51 Dose: 25 mls/hr Lactated Ringer's (Ringers, Lactated) Confirm Administered Dose 1,000 mls @ as directed .ROUTE .STK-MED ONE Stop: 10/22/16 08:09 Lidocaine/Epinephrine (Xylocaine 1% With Epinephrine 1:100,000) Confirm Administered Dose 50 ml .ROUTE .STK-MED ONE Stop: 10/21/16 06:57 Methylprednisolone Sodium Succinate (Solu-Medrol) 60 mg IVPUSH ONETIME ONE Stop: 10/21/16 11:01 Last Admin: 10/21/16 11:23 Dose: 60 mg Neostigmine Methylsulfate (Neostigmine) Confirm Administered Dose 5 mg .ROUTE .STK-MED ONE Stop: 10/22/16 07:30 Ondansetron HCl (Zofran) Confirm Administered Dose 4 mg .ROUTE .STK-MED ONE Stop: 10/22/16 07:30 Itraconazole 100mg (Pom) 0 each PO DAILY@1400 [facility] Last Admin: 10/21/16 18:35 Dose: Not Given Prednisone (Prednisone) 3 mg PO ONETIME ONE Stop: 10/21/16 16:01 Last Admin: 10/21/16 16:11 Dose: 3 mg Propofol (Diprivan 20 Ml) Confirm Administered Dose 200 mg .ROUTE .STK-MED ONE Stop: 10/21/16 11:07 Propofol (Diprivan 20 Ml) Confirm Administered Dose 200 mg .ROUTE .STK-MED ONE Stop: 10/22/16 07:30 Rocuronium [place] (Zemuron) Confirm Administered Dose 50 mg .ROUTE .STK-MED ONE Stop: 10/22/16 07:30 Succinylcholine Chloride (Succinylcholine In Ns Pf) Confirm Administered Dose 200 mg .ROUTE .STK-MED ONE Stop: 10/22/16 07:30 Warfarin Sodium (Coumadin) 10 mg PO ONETIME ONE Stop: 10/22/16 13:01 Last Admin: 10/22/16 12:58 Dose: 10 mg - Exam Quality Assessment: supplemental oxygen. No: urine catheter General: alert, cooperative, no acute distress. No: oriented Neck: supple Lungs: Clear to auscultation, Normal respiratory effort, Rales (few left lung base) Cardiovascular: Regular Rate, Regular Rhythm Abdomen: bowel sounds present, soft, no tenderness, no distension Extremities: no cyanosis, edema (pitting bilateral ankle edema) Skin: warm, dry Psy/Mental Status: alert, normal affect Consult PN Assessment/Plan POD#: 1 Procedures: Procedures AIRWAY INHALATION TREATMENT (01/13/16) ALANINE AMINO (ALT) (SGPT) (12/21/15) ASSAY ALKALINE PHOSPHATASE (12/21/15) ASSAY OF AMYLASE (01/13/16) ASSAY OF CREATININE (12/21/15) ASSAY OF LACTIC ACID (01/13/16) ASSAY OF LIPASE (01/13/16) ASSAY OF MAGNESIUM (01/22/16) ASSAY OF PROTEIN OTHER (01/13/16) ASSAY OF SERUM POTASSIUM (12/21/15) ASSAY PH BODY FLUID NOS (01/13/16) BLOOD CULTURE FOR BACTERIA (02/25/16) BODY FLUID CELL COUNT (01/13/16) C-REACTIVE PROTEIN (02/25/16) CHEST WALL MANIPULATION (01/13/16) CHEST X-RAY 1 VIEW FRONTAL (01/26/16) CHEST X-RAY 2VW FRONTAL&LATL (02/25/16) COLLECT BLOOD FROM PICC (12/21/15) COMPLETE CBC AUTOMATED (02/25/16) COMPLETE CBC W/AUTO DIFF WBC (01/26/16) COMPREHEN METABOLIC PANEL (01/26/16) CT ABD & PELV W/CONTRAST (05/07/15) CT ABD & PELVIS W/O CONTRAST (01/13/16) CT HEAD/BRAIN W/O DYE (01/26/16) CT THORAX W/DYE (01/26/16) CT THORAX W/O DYE (05/30/16) CULTURE OTHR SPECIMN AEROBIC (05/30/16) CULTURE SCREEN ONLY (01/13/16) CYTOPATH CELL ENHANCE TECH (05/30/16) DX BRONCHOSCOPE/LAVAGE (05/30/16) ELECTROCARDIOGRAM REPORT (01/26/16) ELECTROCARDIOGRAM TRACING (01/26/16) EMERGENCY DEPT VISIT (03/08/16) EMERGENCY DEPT VISIT (02/25/16) EMERGENCY DEPT VISIT (01/26/16) EMERGENCY DEPT VISIT (06/01/15) EMERGENCY DEPT VISIT (06/01/15) EMERGENCY DEPT VISIT (05/10/15) EMERGENCY DEPT VISIT (05/10/15) EXTRACRANIAL BILAT STUDY (09/16/16) FUNGUS ISOLATION CULTURE (05/30/16) GLUCOSE BLOOD TEST (01/26/16) GLUCOSE OTHER FLUID (01/13/16) HYDRATE IV INFUSION ADD-ON (06/01/15) INJ FORAMEN EPIDURAL C/T (02/19/16) LACTATE (LD) (LDH) ENZYME (01/13/16) METABOLIC PANEL TOTAL CA (02/25/16) MYCOBACTERIA CULTURE (05/30/16) OFFICE/OUTPATIENT VISIT NEW (12/15/15) PROTHROMBIN TIME (05/30/16) PT EVAL HIGH COMPLEX 45 MIN (07/26/16) PT EVALUATION (01/26/16) ROUTINE VENIPUNCTURE (05/30/16) SELF CARE MNGMENT TRAINING (01/26/16) SMEAR FLUORESCENT/ACID STAI (05/30/16) SMEAR GRAM STAIN (05/30/16) SPECIMEN INFECT AGNT CONCNTJ (05/30/16) TEMPORAL ARTERY PROCEDURE (09/24/16) THER/PROPH/DIAG INJ IV PUSH (06/01/15) THER/PROPH/DIAG INJ SC/IM (01/22/16) THER/PROPH/DIAG IV INF ADDON (12/04/15) THER/PROPH/DIAG IV INF INIT (12/04/15) THERAPEUTIC ACTIVITIES (01/26/16) THERAPEUTIC EXERCISES (08/29/16) TISSUE EXAM BY PATHOLOGIST (01/26/16) TISSUE EXAM FOR FUNGI (05/30/16) TRANSFERASE (AST) (SGOT) (12/21/15) TX/PRO/DX INJ NEW DRUG ADDON (12/04/15) TX/PRO/DX INJ SAME DRUG MANAGER OF FINANCE (06/01/15) URINALYSIS AUTO W/SCOPE (02/25/16) URINE CULTURE/COLONY COUNT (02/25/16) (1) Mass of subcutaneous tissue of back SNOMED Code(s): 399762563819032 Code(s): R22.2 - LOCALIZED SWELLING, MASS AND LUMP, TRUNK Current Visit: Yes (2) Pleural effusion on left SNOMED Code(s): 90585177 Code(s): J90 - PLEURAL EFFUSION, NOT ELSEWHERE CLASSIFIED Current Visit: Yes (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 SNOMED Code(s): 044206365 Code(s): A31.0 - PULMONARY MYCOBACTERIAL INFECTION Priority: High Current Visit: No (4) Celiac disease SNOMED Code(s): 690182971 Code(s): K90.0 - CELIAC DISEASE Priority: Medium Current Visit: No (5) Sarcoidosis of lung SNOMED Code(s): 91753580 Code(s): D86.0 - SARCOIDOSIS OF LUNG Priority: High Current Visit: No (6) Stage III chronic kidney disease SNOMED Code(s): 710977334 Code(s): N18.3 - CHRONIC KIDNEY DISEASE, STAGE 3 (MODERATE) Current Visit: No Problem List Initiated/Reviewed/Updated: Yes Plan: Assessment and plan - Left posterolateral chest mass - status post incision and drainage of abscess. No organisms seen on Gram stain. -continue warfarin -Bridging with enoxaparin -Followup cultures -Postop cares per Dr. Booker Left lung empyema - status post evacuation and partial decortication. Gram stain did not show any organisms. No significant pain. He does have a chest tube in place. He is not currently on antibiotics other than his chronic suppressive medications. -Followup cultures -Chest tube management per Dr. Booker Mycobacterium avium complex - chronic infection, on triple antibiotic therapy. -Continue home medications Sarcoidosis - disease is stable at this time. -Continue home medications Celiac disease - no active symptoms. -Gluten-free diet cultures are negative, most of the management at this time is chest tube monitoring. The hospitalist service will sign off at this time with stable chronic medical problems. please feel free to contact us if he has additional difficulties. José Pearl M.D.
[2016-10-23] MEDS: HYDROmorphone/Normal Saline 15 MG/30 ML PCA IV PRN (09:15)
[2016-10-23] MEDS: ZINC 50 MG PO SCH (09:27)
[2016-10-23] MEDS: Enoxaparin 60 MG/0.6 ML Syringe SUBCUT SCH ×2 (12:37→22:46)
[2016-10-23] MEDS: Acetaminophen 500 MG Tab PO PRN (12:45)
[2016-10-23] MEDS ORDERED: Warfarin 2.5 MG Tab PO ONE (13:00)
[2016-10-23] MEDS: RIFABUTIN 150 MG PO SCH (14:17)
[2016-10-23] MEDS: ETHAMBUTOL 400 MG PO SCH (14:17)
[2016-10-23] MEDS: Azithromycin 250 MG Tab PO SCH (14:18)
--- NOTE | 2016-10-23 15:44 | PN ---
DATE OF SERVICE: 10/23/2016 The patient has been afebrile with stable vital signs. Pain control appears to be reasonably good. It is hard to see to what extent the cavity is closing. We will continue with the chest tube suction, and plan will be to obtain a CT scan on Monday to see to what extent that is closing. Both the fungal and routine Gram stain showed no bacteria, so this is probably going to be an infection that is associated with the mild Mycobacterium avium complex. Otherwise, he is voiding well. The IV will be turned down and we will have him maximize activity and work with pulmonary toilet. Adam Booker MD /[id number]
[2016-10-23] MEDS: Aspirin 81 MG Tab.EC PO SCH (17:30)
[2016-10-23] MEDS: Gabapentin 400 MG Cap PO SCH (21:24)
[2016-10-23] MEDS: NORTRIPTYLINE 10 MG PO SCH (21:25)
[2016-10-24] MEDS: Gabapentin 300 MG Cap PO SCH ×2 (07:35→14:13)
[2016-10-24] MEDS: Pantoprazole 40 MG Tab.CR PO SCH (07:35)
[2016-10-24] MEDS: predniSONE 1 MG Tab PO SCH (08:34)
[2016-10-24] MEDS: ITRACONAZOLE 100 MG PO SCH ×2 (08:35→18:02)
[2016-10-24] MEDS: ZINC 50 MG PO SCH (08:36)
[2016-10-24] MEDS: Sulfamethoxazole/Trimethoprim 800-160 MG Tab PO SCH (08:37)
[2016-10-24] MEDS: Cholecalciferol (Vitamin D3) 1,000 Unit Tab PO SCH (08:37)
[2016-10-24] MEDS ORDERED: Magnesium Hydroxide 400 MG/5 ML Susp 30 ML Cup PO ONE (09:00)
[2016-10-24] MEDS ORDERED: Bisacodyl 5 MG Tab PO ONE (10:00)
--- NOTE | 2016-10-24 10:17 | CR ---
Chest 2V HISTORY: Follow-up evacuation of empyema. COMPARISON: Chest x-ray 10/22/2016. FINDINGS: Prior stenting of descending thoracic aorta. Tiny pleural effusions. Density in the left m id and lower lung zone compatible with some mild atelectatic change or infiltrate similar to prior s tudy no new infiltrate. Possible borderline congestive change.
--- NOTE | 2016-10-24 10:18 | CR ---
Chest 1V Frontal HISTORY: Chest tube placement. COMPARISON: CT chest 10/21/2016. FINDINGS: Chest tube placed in the left chest inferiorly for evacuation of possible empyema. There i s no pneumothorax. Cardiac size is stable. Borderline congestive change.
--- NOTE | 2016-10-24 10:19 | CR ---
Chest 1V Frontal HISTORY: Follow-up chest tube. COMPARISON: 10/23/2016 FINDINGS: Chest do not well seen on today's study could be obscured at left lung base. No new infilt rates. Persistent density left midlung zone and density in the medial left lung base. No new infiltr ates. Possible borderline congestive change.
[2016-10-24] MEDS: Dextrose 5%-Lactated Ringers 1,000 ML IV SCH (10:52)
[2016-10-24] MEDS: Enoxaparin 60 MG/0.6 ML Syringe SUBCUT SCH ×2 (10:52→22:09)
[2016-10-24] MEDS: HYDROmorphone/Normal Saline 15 MG/30 ML PCA IV PRN (10:54)
--- NOTE | 2016-10-24 12:53 | PN ---
DATE OF SERVICE: 10/24/2016 SUBJECTIVE: Lucius is postop day #2. His chest tube put out 30 mL. Oral intake 1400 and output is 2950. His pain is controlled. He is n.p.o. for a CT of his chest tube. OBJECTIVE: GENERAL: Lucius Elizabeth is a pleasant 76-year-old male. VITAL SIGNS: TPR is 96.4, 83, and 18. Blood pressure 108/59. HEENT: Negative. NECK: Supple. HEART: Regular rate and rhythm. LUNGS: Reveal decreased breath sounds bilaterally. Chest tube is dry and intact in left upper chest. ABDOMEN: Soft and nontender. EXTREMITIES: Without peripheral edema. ASSESSMENT: Thoracotomy, removal of empyema, and placement of chest tube on 10/22/2016. PLAN: Discontinue Mullins catheter. Milk of magnesia 30 mL followed by Dulcolax 2 tabs 1 hour. To call with results of CT of the chest. Good pulmonary toilet encouraged. We will evaluate p.r.n. or in a.m. Nikki Cortes PA-C /[id number]
[2016-10-24] MEDS: RIFABUTIN 150 MG PO SCH (14:15)
[2016-10-24] MEDS: ETHAMBUTOL 400 MG PO SCH (14:15)
[2016-10-24] MEDS: Azithromycin 250 MG Tab PO SCH (14:16)
[2016-10-24] MEDS ORDERED: Warfarin 5 MG Tab PO ONE (15:30)
[2016-10-24] MEDS: Aspirin 81 MG Tab.EC PO SCH (18:01)
[2016-10-24] MEDS: Gabapentin 400 MG Cap PO SCH (20:06)
[2016-10-24] MEDS: NORTRIPTYLINE 10 MG PO SCH (20:07)
[2016-10-24] MEDS: Acetaminophen 500 MG Tab PO PRN (20:09)
[2016-10-25] MEDS: Dextrose 5%-Lactated Ringers 1,000 ML IV SCH (03:51)
[2016-10-25] MEDS: Pantoprazole 40 MG Tab.CR PO SCH (07:22)
[2016-10-25] MEDS: Gabapentin 300 MG Cap PO SCH ×2 (07:22→14:03)
[2016-10-25] MEDS ORDERED: HYDROmorphone 2 MG Tab PO PRN (07:23)
[2016-10-25] MEDS: Docusate Sodium 100 MG Cap PO SCH ×2 (08:23→21:44)
[2016-10-25] MEDS: predniSONE 1 MG Tab PO SCH (08:23)
[2016-10-25] MEDS: ITRACONAZOLE 100 MG PO SCH ×2 (08:23→18:58)
[2016-10-25] MEDS: Cholecalciferol (Vitamin D3) 1,000 Unit Tab PO SCH (08:24)
[2016-10-25] MEDS: ZINC 50 MG PO SCH (08:24)
[2016-10-25] MEDS ORDERED: Bisacodyl 5 MG Tab PO ONE (09:00)
[2016-10-25] MEDS: Acetaminophen 325 MG Tab PO SCH ×3 (10:30→21:47)
[2016-10-25] MEDS: Enoxaparin 60 MG/0.6 ML Syringe SUBCUT SCH ×2 (10:30→23:05)
[2016-10-25] MEDS ORDERED: Furosemide 40 MG/4 ML VIAL IVPUSH ONE (11:50)
[2016-10-25] MEDS ORDERED: Warfarin 2.5 MG Tab PO ONE (13:00)
[2016-10-25] MEDS: ETHAMBUTOL 400 MG PO SCH (14:04)
[2016-10-25] MEDS: RIFABUTIN 150 MG PO SCH (14:04)
[2016-10-25] MEDS: Azithromycin 250 MG Tab PO SCH (14:05)
--- NOTE | 2016-10-25 17:50 | OR ---
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 OPERATIVE PROCEDURES: 1. Incision and drainage of submuscular abscess, left chest wall, (). 2. Left thoracotomy with:. a. Evacuation of infected semi-solid fibrinous collection (89695). b. Partial decortication and parietal pleurectomy (76574). ANESTHESIA: General. 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 The patient had not been febrile and so the indolent presentation probably indicates that this is likely related to MAC rather than either a fungal or bacterial infection. The patient does also have a history of aspergillosis involving the lungs. The plan is to proceed with drainage of the submuscular extension and then limited thoracotomy for evacuation of the fluid collection and placement of chest tube. We will do to some extent some decortication and parietal pleurectomy, although a full extent of that is probably relatively unsafe in this patient, at least at this point. Potential risks of the procedure were reviewed with the patient and his including bleeding, infection, possibility that the problem may persist or recur as well as possibility of cardiopulmonary, septic, or hemorrhagic complications leading to were all discussed, and the patient wishes to proceed. DETAILS OF PROCEDURE: The patient was taken to the operating room and after general endotracheal anesthesia was induced, he was placed in a right lateral decubitus position. Mullins catheter had been inserted. The left chest and surrounding areas were then prepped and draped. An incision was then made transversely over the area of the thickening of the chest wall. This was then carried down through the musculature at that level and the trapezius muscle. The brown thin liquid present at that site was then evacuated and cultures obtained. We followed that tract into the pleural space where the incision in the intercostal muscles was then initiated allowing enough to get a finger into the cavity. The cavity had some of the same brown thin liquid as well as some semi-solid fibrinous collection. Cultures were obtained from both of these and semi-solid fibrinous collection was sent for acid-fast stains and cultures as well. Some of the parietal pleura was then broken up, although, the lung still was somewhat entrapped with some tendency to ooze from these surfaces. It was felt at this point that a full decortication would probably be unwise at least at this time. A 24-[place] Mullins catheter was then used for chest tube. This was placed through a stab wound superior to the primary incision and inflated with just 3 mL, just enough to keep the balloon in place and sutured to skin with some 0 Ethibond stitch. The intercostal muscles and latissimus dorsi muscles were then closed with #1 Vicryl stitch. The skin was closed with blaze. The patient was taken to the recovery room in a satisfactory condition. Adam Booker MD /[id number]
--- NOTE | 2016-10-25 18:35 | PN ---
DATE OF SERVICE: 10/25/2016 The patient has been afebrile with stable vital signs, though mildly confused today and we will switch him over to oral pain medication and get rid off the ENGRAVER COPPERPLATE. Otherwise, the CT scan as expected shows the persistent pocket, which is going to be if anything very slowly collapsible with negative pressure. The both fungal and bacterial cultures and Gram stains have been negative, so we are probably dealing with Mycobacterium avium complex either with infection or colonization into that space. I will leave the chest tube in for now, which will more or less prevent things from draining through the skin and perhaps consider anti- tuberculosis irrigation into that period of time to see if that helps sterilize that area and then perhaps get the tube out. Otherwise, he has not moved his bowels as of yet. We will give him some additional bowel stimulation and have him get the shower today. He is having increasing pain from his shingles. states that scheduled Tylenol is usually helpful that we will restart that today as well. We will consult Dr. Zavaleta regarding the anti-tuberculosis irrigation issue. Adam Booker MD /[id number]
[2016-10-25] MEDS: Aspirin 81 MG Tab.EC PO SCH (18:58)
--- NOTE | 2016-10-25 19:56 | PCM.CONSN ---
- General Info Date of Service: 10/25/16 Functional Status: Reports: pain controlled, tolerating diet, urinating - Review of Systems General: Reports: Weakness. Denies: Fever, Chills Pulmonary: Reports: no symptoms Cardiovascular: Reports: No Symptoms Gastrointestinal: Reports: No symptoms Systems Review Comment:: This patient is a 76-year-old gentleman who I been asked to see for medical followup by Dr. Booker. He was admitted with chest wall abscess that seemed to be communicating with a area of chronic empyema. He has had a known history of chronic infection with MAC. And has been on long-term suppressive antibiotic therapy. He was last treated at the [facility] for this last fall, at that time they told him that there was no hope of curing the infection but felt that he could be managed with the antibiotics. Prior to this admission he developed significant temperature elevation and progressive weakness. On evaluation was noted to have the area infection, this has been drained by Dr. Booker and a chest tube left in place for further drainage. I did review current situation with his infectious disease physician, they have no further recommendations concerning ongoing management. Current plan is to flush the area with neomycin and then removed the catheter. If this does not heal and recurrent infection develops plan will be to proceed with a flap procedure for chronic drainage. - Patient Data Vitals - most recent: Last Vital Signs Temp 99.0 F 10/25/16 17:18 Pulse 95 10/25/16 16:18 Resp 16 10/25/16 16:18 BP 134/68 10/25/16 16:18 Pulse Ox 89 L 10/25/16 19:53 Weight - most recent: 173 lb 4.815 oz I&O - last 24 hours: Intake & Output 10/25/16 10/25/16 10/25/16 06:59 14:59 22:59 Intake Total 097 342 8099 Output Total 7709 957 9162 Balance -619 -025 -2082 Lab Results last 24 hrs: Laboratory Results - last 24 hr 10/25/16 Range/Units 04:36 PT 14.5 H (9.5-12.0) sec INR 1.36 H (0.80-1.20) [place] Results last 24 hrs: Microbiology 10/22/16 08:49 Gram Stain - Final Chest - Left Wound Culture - Final NO GROWTH AFTER 3 DAYS Anaerobic Culture - Final NO GROWTH AFTER 3 DAYS 10/22/16 08:44 Gram Stain - Final Chest - Left Wound Culture - Final NO GROWTH AFTER 3 DAYS Anaerobic Culture - Final NO GROWTH AFTER 3 DAYS 10/22/16 08:41 Gram Stain - Final Chest - Left Wound Culture - Final NO GROWTH AFTER 3 DAYS Anaerobic Culture - Final NO GROWTH AFTER 3 DAYS Med Orders - Current: Current Medications Acetaminophen (Tylenol) 650 mg PO QID [facility] Last Admin: 10/25/16 15:26 Dose: 650 mg Aspirin (Halfprin) 81 mg PO Q24H [facility] Last Admin: 10/25/16 18:58 Dose: 81 mg Azithromycin (Zithromax) 500 mg PO DAILY@1400 [facility] Last Admin: 10/25/16 14:05 Dose: 500 mg Cholecalciferol (Vitamin D3) 1,000 units PO DAILY [facility] Last Admin: 10/25/16 08:24 Dose: 1,000 units Docusate Sodium (Colace) 100 mg PO BID [facility] Last Admin: 10/25/16 08:23 Dose: 100 mg Enoxaparin Sodium (Lovenox) 60 mg SUBCUT Q12H [facility] Last Admin: 10/25/16 10:30 Dose: 60 mg Gabapentin (Neurontin) 1,200 mg PO BEDTIME [facility] Last Admin: 10/24/16 20:06 Dose: 1,200 mg Gabapentin (Neurontin) 900 mg PO BID@0700,1400 [facility] Last Admin: 10/25/16 14:03 Dose: 900 mg Hydromorphone HCl (Dilaudid) 2 - 4 mg PO Q4H PRN PRN Reason: PAIN Lorazepam (Ativan) 0.5 mg PO Q4H PRN PRN Reason: NAUSEA Last Admin: 10/22/16 22:53 Dose: 0.5 mg Naloxone HCl (Narcan) 0.1 mg IVPUSH Q2M PRN PRN Reason: Respiratory Distress Nortriptyline HCl (Nortriptyline) 20 mg PO BEDTIME [facility] Last Admin: 10/24/16 20:07 Dose: 20 mg Pantoprazole Sodium (Protonix) 40 mg PO ACBREAKFAST [facility] Last Admin: 10/25/16 07:22 Dose: 40 mg Ethambutol 400mg (TabsPom) 0 each PO DAILY@1400 [facility] Last Admin: 10/25/16 14:04 Dose: 1 each Rifabutin 150mg Cap* (*Pom) 0 each PO DAILY@1400 [facility] Last Admin: 10/25/16 14:04 Dose: 1 each Itraconazole 100mg (Pom) 0 each PO BID@0900,1900 [facility] Last Admin: 10/25/16 18:58 Dose: 1 each Zinc 50mg (Ptom) 0 each PO DAILY [facility] Last Admin: 10/25/16 08:24 Dose: 1 each Prednisone (Prednisone) 3 mg PO DAILY [facility] Last Admin: 10/25/16 08:23 Dose: 3 mg Trimethoprim/Sulfamethoxazole (Septra Ds) 1 tab PO MoWeFr@0900 [facility] Last Admin: 10/24/16 08:37 Dose: 1 tab Discontinued Medications Acetaminophen (Tylenol Extra Strength) 500 mg PO Q6H PRN PRN Reason: PAIN Acetaminophen (Tylenol Extra Strength) 1,000 mg PO BID PRN PRN Reason: PAIN Last Admin: 10/24/16 20:09 Dose: 1,000 mg Azithromycin (Zithromax) 500 mg PO ONETIME ONE Stop: 10/21/16 16:16 Last Admin: 10/21/16 16:13 Dose: 500 mg Bisacodyl (Dulcolax) 20 mg PO ONETIME ONE Stop: 10/24/16 10:01 Last Admin: 10/24/16 09:42 Dose: 20 mg Bisacodyl (Dulcolax) 15 mg PO ONETIME ONE Stop: 10/25/16 09:01 Last Admin: 10/25/16 08:23 Dose: 15 mg Bupivacaine HCl (Marcaine 0.5%) Confirm Administered Dose 50 ml .ROUTE .STK-MED ONE Stop: 10/21/16 06:57 Bupivacaine HCl/Epinephrine Bitart (Marcaine 0.5%/Epinephrine 1:200,000) Confirm Administered Dose 50 ml .ROUTE .STK-MED ONE Stop: 10/22/16 06:41 Last Admin: 10/22/16 08:55 Dose: 12 ml Dexamethasone (Dexamethasone) Confirm Administered Dose 4 mg .ROUTE .STK-MED ONE Stop: 10/22/16 07:30 Enoxaparin Sodium (Lovenox) 100 mg SUBCUT ONETIME ONE Stop: 10/21/16 14:01 Last Admin: 10/21/16 14:03 Dose: 100 mg Fentanyl (Sublimaze) Confirm Administered Dose 100 mcg .ROUTE .STK-MED ONE Stop: 10/21/16 11:08 Fentanyl (Sublimaze) Confirm Administered Dose 250 mcg .ROUTE .STK-MED ONE Stop: 10/22/16 07:30 Fentanyl (Sublimaze) Confirm Administered Dose 100 mcg .ROUTE .STK-MED ONE Stop: 10/22/16 09:06 Furosemide (Lasix) 40 mg IVPUSH NOW ONE Stop: 10/25/16 11:51 Last Admin: 10/25/16 13:17 Dose: 40 mg Gabapentin (Neurontin) 900 mg PO BID@0700,1400 [facility] Last Admin: 10/21/16 16:17 Dose: 900 mg Gabapentin (Neurontin) 900 mg PO BID@0700,1400 [facility] Glycopyrrolate () Confirm Administered Dose 1 mg .ROUTE .STK-MED ONE Stop: 10/22/16 07:30 Hydromorphone HCl (Dilaudid [place] [place] 15 Mg In Ns 30 Ml) 0 mg IV ASDIRECTED PRN; Protocol PRN Reason: Pain Last Admin: 10/24/16 10:54 Dose: 15 mg Dextrose/Lactated Ringer's (Dextrose 5%-Lactated Ringers) 1,000 mls @ 100 mls/ hr IV ASDIRECTED [facility] Last Admin: 10/23/16 05:33 Dose: 100 mls/hr Phytonadione 10 mg/ Sodium (Chloride) 51 mls @ 25 mls/hr IV ONETIME ONE Stop: 10/21/16 15:02 Last Admin: 10/21/16 12:51 Dose: 25 mls/hr Lactated Ringer's (Ringers, Lactated) Confirm Administered Dose 1,000 mls @ as directed .ROUTE .STK-MED ONE Stop: 10/22/16 08:09 Dextrose/Lactated Ringer's (Dextrose 5%-Lactated Ringers) 1,000 mls @ 60 mls/ hr IV ASDIRECTED [facility] Last Admin: 10/25/16 03:51 Dose: 60 mls/hr Lidocaine/Epinephrine (Xylocaine 1% With Epinephrine 1:100,000) Confirm Administered Dose 50 ml .ROUTE .STK-MED ONE Stop: 10/21/16 06:57 Magnesium Hydroxide (Milk Of Magnesia) 30 ml PO ONETIME ONE Stop: 10/24/16 09:01 Last Admin: 10/24/16 09:41 Dose: 30 ml Methylprednisolone Sodium Succinate (Solu-Medrol) 60 mg IVPUSH ONETIME ONE Stop: 10/21/16 11:01 Last Admin: 10/21/16 11:23 Dose: 60 mg Neostigmine Methylsulfate (Neostigmine) Confirm Administered Dose 5 mg .ROUTE .STK-MED ONE Stop: 10/22/16 07:30 Ondansetron HCl (Zofran) Confirm Administered Dose 4 mg .ROUTE .STK-MED ONE Stop: 10/22/16 07:30 Itraconazole 100mg (Pom) 0 each PO DAILY@1400 [facility] Last Admin: 10/21/16 18:35 Dose: Not Given Prednisone (Prednisone) 3 mg PO ONETIME ONE Stop: 10/21/16 16:01 Last Admin: 10/21/16 16:11 Dose: 3 mg Propofol (Diprivan 20 Ml) Confirm Administered Dose 200 mg .ROUTE .STK-MED ONE Stop: 10/21/16 11:07 Propofol (Diprivan 20 Ml) Confirm Administered Dose 200 mg .ROUTE .STK-MED ONE Stop: 10/22/16 07:30 Rocuronium [place] (Zemuron) Confirm Administered Dose 50 mg .ROUTE .STK-MED ONE Stop: 10/22/16 07:30 Succinylcholine Chloride (Succinylcholine In Ns Pf) Confirm Administered Dose 200 mg .ROUTE .STK-MED ONE Stop: 10/22/16 07:30 Warfarin Sodium (Coumadin) 10 mg PO ONETIME ONE Stop: 10/22/16 13:01 Last Admin: 10/22/16 12:58 Dose: 10 mg Warfarin Sodium (Coumadin) 7.5 mg PO ONETIME ONE Stop: 10/23/16 13:01 Last Admin: 10/23/16 12:38 Dose: 7.5 mg Warfarin Sodium (Coumadin) 10 mg PO ONETIME ONE Stop: 10/24/16 15:31 Last Admin: 10/24/16 15:48 Dose: 10 mg Warfarin Sodium (Coumadin) 7.5 mg PO ONETIME ONE Stop: 10/25/16 13:01 Last Admin: 10/25/16 13:11 Dose: 7.5 mg - Exam Quality Assessment: supplemental oxygen, DVT prophylaxis General: alert, oriented, cooperative, mild distress Lungs: Clear to auscultation, Normal respiratory effort Cardiovascular: Regular Rate, Regular Rhythm, No Murmurs Abdomen: bowel sounds present, soft, no tenderness, no distension Extremities: edema Skin: warm, dry, intact Consult PN Assessment/Plan Procedures: Procedures AIRWAY INHALATION TREATMENT (01/13/16) ALANINE AMINO (ALT) (SGPT) (12/21/15) ASSAY ALKALINE PHOSPHATASE (12/21/15) ASSAY OF AMYLASE (01/13/16) ASSAY OF CREATININE (12/21/15) ASSAY OF LACTIC ACID (01/13/16) ASSAY OF LIPASE (01/13/16) ASSAY OF MAGNESIUM (01/22/16) ASSAY OF PROTEIN OTHER (01/13/16) ASSAY OF SERUM POTASSIUM (12/21/15) ASSAY PH BODY FLUID NOS (01/13/16) BLOOD CULTURE FOR BACTERIA (02/25/16) BODY FLUID CELL COUNT (01/13/16) C-REACTIVE PROTEIN (02/25/16) CHEST WALL MANIPULATION (01/13/16) CHEST X-RAY 1 VIEW FRONTAL (01/26/16) CHEST X-RAY 2VW FRONTAL&LATL (02/25/16) COLLECT BLOOD FROM PICC (12/21/15) COMPLETE CBC AUTOMATED (02/25/16) COMPLETE CBC W/AUTO DIFF WBC (01/26/16) COMPREHEN METABOLIC PANEL (01/26/16) CT ABD & PELV W/CONTRAST (05/07/15) CT ABD & PELVIS W/O CONTRAST (01/13/16) CT HEAD/BRAIN W/O DYE (01/26/16) CT THORAX W/DYE (01/26/16) CT THORAX W/O DYE (05/30/16) CULTURE OTHR SPECIMN AEROBIC (05/30/16) CULTURE SCREEN ONLY (01/13/16) CYTOPATH CELL ENHANCE TECH (05/30/16) DX BRONCHOSCOPE/LAVAGE (05/30/16) ELECTROCARDIOGRAM REPORT (01/26/16) ELECTROCARDIOGRAM TRACING (01/26/16) EMERGENCY DEPT VISIT (03/08/16) EMERGENCY DEPT VISIT (02/25/16) EMERGENCY DEPT VISIT (01/26/16) EMERGENCY DEPT VISIT (06/01/15) EMERGENCY DEPT VISIT (06/01/15) EMERGENCY DEPT VISIT (05/10/15) EMERGENCY DEPT VISIT (05/10/15) EXTRACRANIAL BILAT STUDY (09/16/16) FUNGUS ISOLATION CULTURE (05/30/16) GLUCOSE BLOOD TEST (01/26/16) GLUCOSE OTHER FLUID (01/13/16) HYDRATE IV INFUSION ADD-ON (06/01/15) INJ FORAMEN EPIDURAL C/T (02/19/16) LACTATE (LD) (LDH) ENZYME (01/13/16) METABOLIC PANEL TOTAL CA (02/25/16) MYCOBACTERIA CULTURE (05/30/16) OFFICE/OUTPATIENT VISIT NEW (12/15/15) PROTHROMBIN TIME (05/30/16) PT EVAL HIGH COMPLEX 45 MIN (07/26/16) PT EVALUATION (01/26/16) ROUTINE VENIPUNCTURE (05/30/16) SELF CARE MNGMENT TRAINING (01/26/16) SMEAR FLUORESCENT/ACID STAI (05/30/16) SMEAR GRAM STAIN (05/30/16) SPECIMEN INFECT AGNT CONCNTJ (05/30/16) TEMPORAL ARTERY PROCEDURE (09/24/16) THER/PROPH/DIAG INJ IV PUSH (06/01/15) THER/PROPH/DIAG INJ SC/IM (01/22/16) THER/PROPH/DIAG IV INF ADDON (12/04/15) THER/PROPH/DIAG IV INF INIT (12/04/15) THERAPEUTIC ACTIVITIES (01/26/16) THERAPEUTIC EXERCISES (08/29/16) TISSUE EXAM BY PATHOLOGIST (01/26/16) TISSUE EXAM FOR FUNGI (05/30/16) TRANSFERASE (AST) (SGOT) (12/21/15) TX/PRO/DX INJ NEW DRUG ADDON (12/04/15) TX/PRO/DX INJ SAME DRUG CLASSIFIED ADVERTISING CLERK (06/01/15) URINALYSIS AUTO W/SCOPE (02/25/16) URINE CULTURE/COLONY COUNT (02/25/16) Problem List Initiated/Reviewed/Updated: Yes My Orders last 24 hours: My Active Orders 10/25/16 11:49 Convert IV to Saline Lock [OM.PC] Routine 10/26/16 05:00 BASIC METABOLIC PANEL,BMP [CHEM] Timed MAGNESIUM [CHEM] Timed Plan: ASSESSMENT AND RECOMMENDATIONS CHRONIC MAC INFECTION WITH INVOLVEMENT OF THE CHEST WALL-status post surgical drainage -Continue current antibiotic therapy -Continue management plan as outlined by Dr. Booker FLUID OVERLOAD WITH PERIPHERAL EDEMA-edema of both lower extremities and extending into the scrotum -Lasix 40 mg IV x1 -BMP in a.m.
[2016-10-25] MEDS: Gabapentin 400 MG Cap PO SCH (21:45)
[2016-10-25] MEDS: NORTRIPTYLINE 10 MG PO SCH (21:46)
[2016-10-26] MEDS: Acetaminophen 325 MG Tab PO SCH ×4 (06:55→22:30)
[2016-10-26] MEDS: Gabapentin 300 MG Cap PO SCH ×2 (06:55→13:55)
[2016-10-26] MEDS: Pantoprazole 40 MG Tab.CR PO SCH (07:53)
--- NOTE | 2016-10-26 08:13 | PN ---
DATE OF SERVICE: 10/26/2016 HISTORY OF PRESENT ILLNESS: Lucius reports his pain is controlled. He did report that he had frequency of urination and was incontinent, stating he could not get up as quickly as he needed to and is often as he was urinating. Temp max is 99.3. Chest tube has put out 5 mL. Oral intake 600 and urine output was 4745. He did have two bowel movements. REVIEW OF SYSTEMS: Remainder of review of systems is negative for any pertinent positives or negatives. OBJECTIVE: GENERAL: Lucius is a pleasant 76-year-old male. He is alert and orientated. VITAL SIGNS: Vitals last checked at the time of dictation at 0454, no temp recorded, pulse 88, respirations 18, and pulse ox is 94% on 1.5 L. At 0347, his O2 by pulse oximetry went to 87% and he was given O2 per nasal cannula at 1.5 L. HEENT: Negative. NECK: Supple. HEART: Regular rate and rhythm. LUNGS: Revealed good breath sounds on the right. Left reveals decreased breath sounds. Chest tube is intact. Dressing dry and intact. ABDOMEN: Negative. EXTREMITIES: Negative. Color is flushed. ASSESSMENT: 1. Incision and drainage of submuscular abscess, left chest wall. 2. Left thoracotomy with evacuation of infected semi-solid fibrinous collection and partial decortication and partial pleurectomy. 3. Mycobacterium avium complex infection with a chronic appearing empyema. Date of surgery 10/22/2016. PLAN: 1. One amp neomycin in 100 mL of saline and give 10 mL b.i.d. through chest tube. Clamp chest tube 20 minutes and put back to suction. 2. Coumadin 7.5 mg p.o. one time. Continue Tylenol scheduled for post shingles pain. Good pulmonary toilet encouraged. 3. We will evaluate p.r.n. or in a.m. Nikki Cortes PA-C /[id number]
[2016-10-26] MEDS: Docusate Sodium 100 MG Cap PO SCH ×2 (08:14→20:45)
[2016-10-26] MEDS: predniSONE 1 MG Tab PO SCH (08:14)
[2016-10-26] MEDS: ZINC 50 MG PO SCH (08:16)
[2016-10-26] MEDS: ITRACONAZOLE 100 MG PO SCH ×2 (08:16→18:01)
[2016-10-26] MEDS: Sulfamethoxazole/Trimethoprim 800-160 MG Tab PO SCH (08:17)
[2016-10-26] MEDS: Cholecalciferol (Vitamin D3) 1,000 Unit Tab PO SCH (08:20)
[2016-10-26] MEDS: NEOMYCIN IRR SCH ×4 (10:00→10:30)
[2016-10-26] MEDS: POLYMYXIN B SODIUM CHLORIDE IRR SCH ×4 (10:00→10:30)
[2016-10-26] MEDS: Enoxaparin 60 MG/0.6 ML Syringe SUBCUT SCH ×2 (11:35→23:51)
[2016-10-26] MEDS ORDERED: Furosemide 40 MG/4 ML VIAL IVPUSH ONE (13:00)
[2016-10-26] MEDS ORDERED: Warfarin 2.5 MG Tab PO ONE (13:00)
[2016-10-26] MEDS: RIFABUTIN 150 MG PO SCH (13:55)
[2016-10-26] MEDS: ETHAMBUTOL 400 MG PO SCH (13:55)
[2016-10-26] MEDS: Azithromycin 250 MG Tab PO SCH (13:56)
[2016-10-26] MEDS ORDERED: Furosemide 20 MG Tab PO ONE (14:30)
[2016-10-26] MEDS: Aspirin 81 MG Tab.EC PO SCH (18:01)
[2016-10-26] MEDS: Gabapentin 400 MG Cap PO SCH (20:44)
[2016-10-26] MEDS: NORTRIPTYLINE 10 MG PO SCH (20:45)
[2016-10-27] MEDS: Acetaminophen 325 MG Tab PO SCH ×4 (06:24→23:31)
[2016-10-27] MEDS: Gabapentin 300 MG Cap PO SCH ×2 (06:24→13:27)
[2016-10-27] MEDS: Pantoprazole 40 MG Tab.CR PO SCH (07:10)
--- NOTE | 2016-10-27 07:50 | PN ---
DATE OF SERVICE: 10/27/2016 SUBJECTIVE: Lucius yesterday his chest tube dressing on. INR is 1.36 today. O2 is 85% to 87% on room air. His vital signs have been stable. He has been afebrile. He remains to be quite weak. REVIEW OF SYSTEMS: Remainder of review of systems negative for any pertinent positives or negatives. OBJECTIVE: GENERAL: Lucius is a 76-year-old male. He is resting quietly in bed. VITAL SIGNS: TPR is 98.8, 88, 20, blood pressure 153/77. O2 is 97% on 1.5 L. HEENT: Negative. NECK: Supple. HEART: Regular rate and rhythm. LUNGS: Reveal decreased breath sounds in the left. The chest tube site dressing is dry and intact. ABDOMEN: Soft and nontender. EXTREMITIES: Without peripheral edema. ASSESSMENT: 1. Incision and drainage of submuscular abscess, left chest wall. 2. Left thoracotomy with evacuation of infected semi-solid fibrinous collection and partial decortication and partial pleurectomy. 3. Mild bacterium avium complex infection with a chronic-appearing empyema. Date of surgery 10/22/2016. PLAN: 1. Coumadin 10 mg one time today. Physical therapy to evaluate discharge needs and status. Plan discharge in a.m., 10/29/2015. Discontinue continuous pulse ox. 2. We will refer to home healthcare. 3. We will evaluate p.r.n. or in a.m. Adam Booker MD, discussed the possible surgical procedure with Solange Elizabeth. He was given the patient education pictures of possible surgical procedure that could be done if needed if Hai would develop any further abscesses or this current one would reoccur. Nikki Cortes PA-C /[id number]
[2016-10-27] MEDS: predniSONE 1 MG Tab PO SCH (08:26)
[2016-10-27] MEDS: ITRACONAZOLE 100 MG PO SCH ×2 (08:26→18:20)
[2016-10-27] MEDS: Docusate Sodium 100 MG Cap PO SCH ×2 (08:26→20:36)
[2016-10-27] MEDS: ZINC 50 MG PO SCH (08:27)
[2016-10-27] MEDS: Cholecalciferol (Vitamin D3) 1,000 Unit Tab PO SCH (08:29)
[2016-10-27] MEDS: Enoxaparin 60 MG/0.6 ML Syringe SUBCUT SCH ×2 (10:18→23:31)
--- NOTE | 2016-10-27 10:51 | CR ---
Chest 2V HISTORY: 10/24/2016. COMPARISON: Chest x-ray 10/25/2016. Prior descending thoracic aortic stent. Cardiac size stable stable prominence in the right hilar re gion compatible with pulmonary artery. No new infiltrates seen. Improved aeration left lung base pat ient had known empyema in this region. Impression: No new infiltrates seen.
[2016-10-27] MEDS ORDERED: Warfarin 5 MG Tab PO ONE (13:00)
[2016-10-27] MEDS: ETHAMBUTOL 400 MG PO SCH (13:27)
[2016-10-27] MEDS: RIFABUTIN 150 MG PO SCH (13:29)
[2016-10-27] MEDS: Azithromycin 250 MG Tab PO SCH (13:30)
[2016-10-27] MEDS: Aspirin 81 MG Tab.EC PO SCH (18:20)
[2016-10-27] MEDS: NORTRIPTYLINE 10 MG PO SCH (20:36)
[2016-10-27] MEDS: Gabapentin 400 MG Cap PO SCH (20:36)
[2016-10-28] MEDS: Gabapentin 300 MG Cap PO SCH (06:31)
[2016-10-28] MEDS: Acetaminophen 325 MG Tab PO SCH ×2 (06:31→10:04)
[2016-10-28] MEDS: Pantoprazole 40 MG Tab.CR PO SCH (06:32)
[2016-10-28 07:46] VITALS: BP 133/73
[2016-10-28] MEDS: Sulfamethoxazole/Trimethoprim 800-160 MG Tab PO SCH (08:40)
[2016-10-28] MEDS: Docusate Sodium 100 MG Cap PO SCH (08:40)
[2016-10-28] MEDS: ZINC 50 MG PO SCH (08:41)
[2016-10-28] MEDS: ITRACONAZOLE 100 MG PO SCH (08:41)
[2016-10-28] MEDS: predniSONE 1 MG Tab PO SCH (08:41)
[2016-10-28] MEDS: Cholecalciferol (Vitamin D3) 1,000 Unit Tab PO SCH (08:42)
--- NOTE | 2016-10-28 09:42 | DISCH ---
ADMISSION DIAGNOSES: 1. Mycobacterium avium complex (MAC). 2. Celiac disease. 3. Left pleural effusion. 4. Left mid back mass. 5. Hard of hearing. 6. Aneurysm. 7. Thoracic aorta atherosclerosis. 8. Sarcoidosis. 9. Chronic calcific pancreatitis. 10.History of renal calculus. 11.Arthritis. 12.Anxiety. 13.Depression. 14.Immunosuppression. 15.Basal cell carcinoma. 16.Current internal shingles. DISCHARGE DIAGNOSES: 1. Incision and drainage of submuscular abscess, left chest wall. 2. Left thoracotomy with evacuation of infected semi-solid fibrinous collection and partial decortication and parietal pleurectomy. HISTORY: Lucius Elizabeth is a 76-year-old male with known mycobacterium avium complex infection, presenting with chronic-appearing empyema, which was located in the left posterior-inferior wall. After preoperative evaluation and discussion of possible risks and possible complications, he wished to proceed with surgical procedure. HOSPITAL COURSE: Hai had his surgery on 10/22/2016. He had no operative complications. He was treated with antibiotics, and he did have a chest tube in. The chest tube did fall out on 10/26/2016. He remained afebrile. Oral intake was marginal, and his pain was controlled. He was able to be discharged to home with home health care on 10/28/2016, with no complications. OBJECTIVE: GENERAL: Hai is a 76-year-old male. VITAL SIGNS: Height is 6 feet, weight is 173 pounds. TPR 98.7, 87, 20. Blood pressure 128/65. HEENT: Negative. NECK: Supple. HEART: Regular rate and rhythm. CHEST: Left chest incision, blaze intact. There is an area where the chest tube is slightly raised. Some bruising is noted. Dressing was changed per Adam Booker M.D., this a.m. Lungs otherwise show decreased breath sounds in the left, right is clear. ABDOMEN: Soft and nontender. EXTREMITIES: Without peripheral edema. DISPOSITION: Discharged to home. CONDITION: Stable and improving. FOLLOWUP: He is to follow up with Adam Bookre M.D., on 11/02/2016 at 9:30 a.m. He is to have a chest x-ray, PA and lateral; PT and INR at 9:00 a.m. before clinic appointment. MEDICATIONS: New prescriptions: 1. Tylenol 650 mg oral 4 times daily. 2. Aspirin 81 mg q.24 hours. 3. Zithromax 500 mg oral, #30 with 5 refills. 4. Vitamin D3 1000 international units daily. 5. Colace 100 mg oral twice daily. 6. Lovenox 100 mg subcutaneous daily for 5 days. 7. Gabapentin 900 mg b.i.d. at 0700 hours and 1400 hours. 8. Gabapentin 1200 mg oral at bedtime. 9. Dilaudid 2 mg 1 to 2 every 4 hours p.r.n. pain, #4. 10.Nortriptyline 20 mg at bedtime. 11.Protonix 40 mg oral before breakfast. 12.Sulfamethoxazole and trimethoprim 1 tablet at 0900 hours, #30 with 5 refills. He is to resume his home medications of, 1. Aspirin 81 mg daily. 2. Senokot 1 each at bedtime. 3. Vitamin B12 500 mcg sublingual every morning. 4. Itraconazole 400 mg twice daily. 5. Ativan 0.5 mg oral every 4 hours p.r.n. DIET AFTER DISCHARGE: Usual diet as tolerated. Drink 8 to 10 glasses of water a day. OTHER ACTIVITY: Walk 6 times daily short distance inside your home. Shower bathing, may shower. Notify provider if any fever or increased pain. Wound incision care: Keep site clean and dry. Take off the left chest dressing tomorrow, 10/29/2016, and october shower. Leave incision open or place a small dressing over it if it is draining. SPECIAL INSTRUCTION: Use incentive spirometer 10 times every hour while awake for 2 weeks.
[2016-10-28] MEDS: Enoxaparin 60 MG/0.6 ML Syringe SUBCUT SCH (10:04)
[2016-10-28] MEDS ORDERED: Warfarin 5 MG Tab PO ONE (13:00)
== END 2016-10-28 10:35 | disposition home health service (06) | DRG 178 ==
LOC: JP.SDS 09:40 → JP.MS 14:44
PROVIDERS: ADMIT Surgery; ATTEND Surgery
PROC: 0W9B00Z Drainage of Left Pleural Cavity with Drainage Device, Open Approach (ICD-10-PCS; principal; 2016-10-22)
DX: J86.0 Pyothorax with fistula (principal); B44.1 Other pulmonary aspergillosis; D68.8 Other specified coagulation defects; J90 Pleural effusion, not elsewhere classified; K86.1 Other chronic pancreatitis; A31.0 Pulmonary mycobacterial infection; R22.2 Localized swelling, mass and lump, trunk; Z31.0 Encounter for reversal of previous sterilization; K90.0 Celiac disease; N18.3 Chronic kidney disease, stage 3 (moderate); D86.0 Sarcoidosis of lung; B02.9 Zoster without complications; K21.9 Gastro-esophageal reflux disease without esophagitis; M19.90 Unspecified osteoarthritis, unspecified site; Z85.828 Personal history of other malignant neoplasm of skin; H91.90 Unspecified hearing loss, unspecified ear; H54.7 Unspecified visual loss; Z79.82 Long term (current) use of aspirin; Z79.01 Long term (current) use of anticoagulants; Z79.52 Long term (current) use of systemic steroids; F32.9 Major depressive disorder, single episode, unspecified; F41.9 Anxiety disorder, unspecified; I70.0 Atherosclerosis of aorta; Z87.442 Personal history of urinary calculi; K86.81 Exocrine pancreatic insufficiency; Z79.2 Long term (current) use of antibiotics; E87.70 Fluid overload, unspecified
CPT/HCPCS: 36415; 71250 ×2; 80053; 85027; 85610; 93005; 93010; J1650; J2930; J3430; J7042; J7050; 71010; 71010-26; 71020; 71020-26; 80048; 83735; 86850; 86900; 86901; 87015; 87070; 87075; 87102; 87116; 87205; 87206; 87220; 88304; 88312; 94762; 97110-GP; 97116-GP; 97162-GP; 97530-GP; A9270-GY; J1100; J1170; J1940; J2405; J2704; J3010; J7120

== ENCOUNTER 2016-11-03 22:05 | Emergency (ER) | payer MEDICARE ==
[2016-11-03] MEDS ORDERED: HYDROmorphone 1 MG/ML Syringe IVPUSH ONE (22:32)
[2016-11-03] MEDS ORDERED: Ondansetron 4 MG/2 ML SDV IVPUSH ONE (22:33)
[2016-11-03] MEDS ORDERED: Sodium Chloride 0.9% 75 ML IV ONE (22:44)
[2016-11-03] MEDS ORDERED: Iopamidol 612 MG/ML 100 ML Bottle IV PRN (22:44)
[2016-11-03] MEDS ORDERED: Sodium Chloride 0.9% 10 ML Syringe FLUSH PRN (22:44)
[2016-11-03] MEDS ORDERED: Sodium Chloride 0.9% 1,000 ML IV SCH (22:45)
[2016-11-04] MEDS ORDERED: HYDROmorphone 1 MG/ML Syringe IVPUSH ONE (00:28)
--- NOTE | 2016-11-04 00:28 | EDM.PDOC ---
ED HPI GENERAL MEDICAL PROBLEM - General Chief Complaint: General Stated Complaint: BLEEDING FROM SURGERY Time Seen by Provider: 11/03/16 22:27 Source of Information: Reports: Patient, Family History Limitations: Reports: No Limitations - History of Present Illness INITIAL COMMENTS - FREE TEXT/NARRATIVE: History of present illness: [76-year-old male presents with a history of a cooperative procedure on 2016 in which an incision and drainage of the submuscular abscess of the left chest wall was undertaken by Dr. Booker. Her drain was removed yesterday. They present now after he had been sleeping and lying down and when he woke up there was blood on the sheets and in the dressing and the concern. He is having some pain at the site as well. He also has some chronic post shingle pain that is upper extremities that has been a problem for months for him. He's had no fevers or chills he has chronic shortness of breath due to sarcoidosis he's recently had a aortic dissection which was treated endovascularly and has been plagued with Mycobacterium avium complex infection with this empyema. He is on chronic antibiotics for this infection.] Review of systems: As per history of present illness and below otherwise all systems reviewed and negative. Past medical history: As per history of present illness and as reviewed below otherwise noncontributory. Surgical history: As per history of present illness and as reviewed below otherwise noncontributory. Social history: No reported history of drug or alcohol abuse. Family history: As per history of present illness and as reviewed below otherwise noncontributory. Physical exam: Gen.: He is presenting in a lot of discomfort and pain and is slow to move and rest and lay down on the gurney. HEENT: Atraumatic, normocephalic, pupils reactive, negative for conjunctival pallor or scleral icterus, mucous membranes moist, throat clear, neck supple, nontender, trachea midline. Lungs he has decreased breath sounds of the left lung field prison up with some crackles and the surgical site reveals some recent expulsion of old blood through the drain site onto the bandage is there does not appear to be any active arterial bleeding present. There is still some swelling beneath the drainage site suggesting still the presence of hematoma that I presume is dissolving. This is not foul-smelling and there is no evidence of infection. Heart: S1S2, regular, negative Abdomen: Soft, nondistended, nontender. Pelvis: Stable nontender. Genitourinary: Deferred. Rectal: Deferred. Extremities: Atraumatic, negative for cords or calf pain. Neurovascular unremarkable. Neuro: Awake, alert, oriented. Cranial nerves II through XII unremarkable. Cerebellum unremarkable. Motor and sensory unremarkable throughout. Exam nonfocal. Diagnostics: [CBC was done and shows a hemoglobin of 8.6. 2 weeks ago his hemoglobin was 10.7 I believe. The left lung empyema is still present and unchanged. See the CT report for details.] Therapeutics: [Patient was treated with IV fluids and IV Dilaudid and felt much better with this.] Impression: [Post surgical drainage that is insignificant] Plan: [Patient and family were reassured that this is nothing emergent and no active bleeding is occurring. They have an appointment to see Dr. Booker in 2 weeks. We will be placing the CT report into his hands in the morning and also notifying him that his hemoglobin is now 8.6.] Definitive disposition and diagnosis as appropriate pending reevaluation and review of above. Left Middle Back Pain Score (Numeric/FACES): 5 - Related Data Allergies Allergy/AdvReac Type Severity Reaction Status Date / Time No Known Allergies Allergy Verified 11/03/16 22:17 Home Meds: Home Meds Cholecalciferol (Vitamin D3) [Vitamin D3] 1,000 unit PO QAM 05/10/15 [History] Cyanocobalamin (Vitamin B-12) [Vitamin B-12] 500 mcg SL QAM 05/10/15 [History] Sulfamethoxazole/Trimethoprim [Septra] 1 tab PO MOWEFR 05/10/15 [History] Zinc Gluconate [Zinc] 50 mg PO QAM 05/10/15 [History] predniSONE [Prednisone] 3 mg PO Q48H 05/10/15 [History] Acetaminophen [Tylenol] 500 mg PO Q6H PRN 12/04/15 [History] Aspirin [[place]ico Chewable Aspirin] 81 mg PO BEDTIME 12/04/15 [History] Ethambutol 1,200 mg PO DAILY 12/04/15 [History] Rifabutin 300 mg PO DAILY 12/04/15 [History] Azithromycin 500 mg PO DAILY 02/05/16 [History] LORazepam [Ativan] 0.5 mg PO Q4HR PRN 03/08/16 [History] Docusate Sodium/Sennosides [Senokot-S] 1 each PO BEDTIME 05/25/16 [History] Gabapentin [Neurontin] 900 mg PO BID 05/25/16 [History] Nortriptyline HCl [Pamelor] 20 mg PO BEDTIME 05/25/16 [History] Pantoprazole Sodium 40 mg PO DAILY 05/25/16 [History] Warfarin [Coumadin] 5 mg PO ASDIRECTED 05/25/16 [History] Gabapentin [Neurontin] 1,200 mg PO BEDTIME 09/22/16 [History] Itraconazole 400 mg PO BID 10/20/16 [History] Acetaminophen [Tylenol] 650 mg PO QID tablet 10/27/16 [Rx] Aspirin [Halfprin] 81 mg PO Q24H tab.ec 10/27/16 [Rx] Azithromycin [Zithromax] 500 mg PO DAILY@1400 #30 tablet 10/27/16 [Rx] Cholecalciferol (Vitamin D3) [Vitamin D3] 1,000 units PO DAILY tablet 10/27/16 [Rx] Docusate Sodium [Colace] 100 mg PO BID cap 10/27/16 [Rx] Enoxaparin [Lovenox] 100 mg SUBCUT DAILY #5 syringe 10/28/16 [Rx] Gabapentin [Neurontin] 1,200 mg PO BEDTIME cap 10/28/16 [Rx] Gabapentin [Neurontin] 900 mg PO BID@0700,1400 cap 10/28/16 [Rx] HYDROmorphone [Dilaudid] 2 - 4 mg PO Q4H PRN #40 tablet 10/28/16 [Rx] Nortriptyline 20 mg PO BEDTIME cap 10/28/16 [Rx] Pantoprazole [ProTONIX] 40 mg PO ACBREAKFAST tab.cr 10/28/16 [Rx] Sulfamethoxazole/Trimethoprim [IJD: Sulfamethoxazole/Trimethoprim DS] 1 tab PO MoWeFr@0900 #30 tablet 10/28/16 [Rx] Past Medical History HEENT History: Reports: Hard of hearing, Impaired vision Cardiovascular History: Reports: Aneurysm Other Cardiovascular History: THORACIC AORTA ATHEROSCLEROSIS Respiratory History: Reports: SOB Other Respiratory History: SARCOIDOSIS. Mycobacterium avium complex infection. reactive airway - Gastrointestinal History: Reports: Colon polyp, GERD, Pancreatitis Other Gastrointestinal History: CELIAC DISEASE. CHRONIC CALCIFIC PANCREATITIS Genitourinary History: Reports: Renal calculus Other Genitourinary History: CKD STAGE 3 - resolved 2011 Musculoskeletal History: Reports: Amputation, Arthritis, Fracture Other Musculoskeletal History: left hand pointer finger Psychiatric History: Reports: Anxiety, Depression Immunologic History: Reports: Immunosuppression Oncologic (Cancer) History: Reports: Basal cell carcinoma Dermatologic History: Reports: Other (see below) Other Dermatologic History: basil cell ca, current shingles-internal - Infectious Disease History Infectious Disease History: Reports: Chicken pox, Measles, Shingles Other Infectious Disease History: MAC Disease. Fungal infection lungs - Past Surgical History Cardiovascular Surgical History: Reports: Other (see below) Other Cardiovascular Surgeries/Procedures: thoracic endovascular aortic graft 11/26/15 Respiratory Surgical History: Reports: Lung Biopsies Other Respiratory Surgeries/Procedures: bronchoscopy with lavage GI Surgical History: Reports: Appendectomy, Cholecystectomy, Colonoscopy, EGD Male Surgical History: Reports: Lithotripsy ([facility]) Musculoskeletal Surgical History: Reports: Amputation Other Musculoskeletal Surgeries/Procedures:: finger amp Oncologic Surgical History: Reports: Lumpectomy Dermatological Surgical History: Reports: Skin biopsy Social & Family History - Family History Family Medical History: Noncontributory HEENT: Reports: None Cardiac: Reports: Hypertension Respiratory: Reports: Other (see below) Other Respiratory Family Hisory: unknown GI: Reports: Bowel obstruction : Reports: UTI, recurrent Musculoskeletal: Reports: Back pain, chronic Neurological: Reports: Dementia Oncologic: Reports: Cervix, Skin, Uterine - Tobacco Use Smoking Status *Q: Never Smoker Second Hand Smoke Exposure: No - Caffeine Use Caffeine Use: Reports: Coffee Other Caffeine Use: 3-4 cups Q day - Recreational Drug Use Recreational Drug Use: No - Living Situation & Occupation Living situation: Reports: Occupation: retired (Lives with Sherie, [facility]. Has 4 children 2 sons 2 daughters) ED ROS GENERAL - Review of Systems Review Of Systems: ROS reveals no pertinent complaints other than HPI. ED EXAM, GENERAL - Physical Exam Exam: See Below Course - Vital Signs Last Recorded V/S: Last Vital Signs Temp 36.6 C 11/03/16 22:15 Pulse 95 11/03/16 22:15 Resp 22 H 11/03/16 22:15 BP 133/61 11/03/16 22:15 Pulse Ox 98 11/03/16 22:15 - Orders/Labs/Meds Orders: Active Orders 24 hr Category Date Time Status Chest w Cont [CT] Stat Exams 11/03/16 22:28 Taken Sodium Chloride 0.9% [Normal Saline] 1,000 ml Med 11/03/16 22:45 Active IV ASDIRECTED Sodium Chloride 0.9% [Saline Flush] Med 11/03/16 22:44 Active 10 ml FLUSH ONETIME PRN Medication Orders Sodium Chloride (Normal Saline) 1,000 mls @ 150 mls/hr IV ASDIRECTED GINETTE Last Admin: 11/03/16 22:48 Dose: 150 mls/hr Sodium Chloride (Saline Flush) 10 ml FLUSH ONETIME PRN PRN Reason: PER RADIOLOGY PROTOCOL Last Admin: 11/03/16 23:01 Dose: 10 ml Labs: Laboratory Tests 11/03/16 11/03/16 11/03/16 Range/Units 22:40 22:40 22:40 WBC 5.3 (4.5-11.0) K/uL RBC 3.20 L (4.30-5.90) M/uL Hgb 8.6 L D (12.0-15.0) g/dL Hct 28.2 L (40.0-54.0) % MCV 88 (80-98) fL MCH 27 (27-31) pg MCHC 31 L (32-36) % Plt Count 366 (150-400) K/uL Neut % (Auto) 77 H (36-66) % Lymph % (Auto) 6 L (24-44) % [place] % (Auto) 14 H (2-6) % Eos % (Auto) 2 (2-4) % Baso % (Auto) 1 (0-1) % PT 24.2 H (9.5-12.0) sec INR 2.23 H (0.80-1.20) ABG Hemoglobin 8.8 L (13.5-18.0) g/dL ABG Oxyhemoglobin 40.2 % ABG Carboxyhemoglobin 1.7 H (0.0-1.6) % ABG Methemoglobin 0.8 % VBG pH 7.401 (7.350-7.450) VBG pCO2 40.4 mm/Hg VBG pO2 25.0 mm/Hg VBG HCO3 24.5 mmol/L VBG Total CO2 23.4 mmol/L VBG O2 Saturation 41.2 VBG O2 Content 5.0 %vol VBG Base Excess 0.3 mm/L O2 Delivery Device Room air Sodium (140-148) mmol/L Potassium (3.6-5.2) mmol/L Chloride (100-108) mmol/L Carbon Dioxide (21-32) mmol/L Anion Gap (5.0-14.0) mmol/L BUN (7-18) mg/dL Creatinine (0.8-1.3) mg/dL Est Cr Clr Drug Dosing mL/min Estimated GFR (MDRD) (>60) Glucose (74-106) mg/dL Lactic Acid (0.4-2.0) mmol/L Calcium (8.5-10.1) mg/dL Total Bilirubin (0.2-1.0) mg/dL AST (15-37) U/L ALT (12-78) U/L Alkaline Phosphatase (46-116) U/L C-Reactive Protein (0.0-0.3) mg/dL Total Protein (6.4-8.2) g/dL Albumin (3.4-5.0) g/dL Globulin (2.3-3.5) g/dL Albumin/Globulin Ratio (1.2-2.2) 11/03/16 11/03/16 Range/Units 22:40 22:40 WBC (4.5-11.0) K/uL RBC (4.30-5.90) M/uL Hgb (12.0-15.0) g/dL Hct (40.0-54.0) % MCV (80-98) fL MCH (27-31) pg MCHC (32-36) % Plt Count (150-400) K/uL Neut % (Auto) (36-66) % Lymph % (Auto) (24-44) % [place] % (Auto) (2-6) % Eos % (Auto) (2-4) % Baso % (Auto) (0-1) % PT (9.5-12.0) sec INR (0.80-1.20) ABG Hemoglobin (13.5-18.0) g/dL ABG Oxyhemoglobin % ABG Carboxyhemoglobin (0.0-1.6) % ABG Methemoglobin % VBG pH (7.350-7.450) VBG pCO2 mm/Hg VBG pO2 mm/Hg VBG HCO3 mmol/L VBG Total CO2 mmol/L VBG O2 Saturation VBG O2 Content %vol VBG Base Excess mm/L O2 Delivery Device Sodium 139 L (140-148) mmol/L Potassium 4.2 (3.6-5.2) mmol/L Chloride 102 (100-108) mmol/L Carbon Dioxide 26 (21-32) mmol/L Anion Gap 15.2 H (5.0-14.0) mmol/L BUN 18 (7-18) mg/dL Creatinine 1.3 (0.8-1.3) mg/dL Est Cr Clr Drug Dosing 52.30 mL/min Estimated GFR (MDRD) 54 L (>60) Glucose 123 H (74-106) mg/dL Lactic Acid 1.6 (0.4-2.0) mmol/L Calcium 8.3 L (8.5-10.1) mg/dL Total Bilirubin 1.0 (0.2-1.0) mg/dL AST 29 (15-37) U/L ALT 27 (12-78) U/L Alkaline Phosphatase 486 H (46-116) U/L C-Reactive Protein 11.07 H (0.0-0.3) mg/dL Total Protein 6.9 (6.4-8.2) g/dL Albumin 2.4 L (3.4-5.0) g/dL Globulin 4.5 H (2.3-3.5) g/dL Albumin/Globulin Ratio 0.5 L (1.2-2.2) Meds: Medications Generic Name Dose Route Start Last Admin Trade Name Freq PRN Reason Stop Dose Admin Sodium Chloride 1,000 mls @ 150 mls/hr 11/03/16 22:45 11/03/16 22:48 Normal Saline IV 150 mls/hr ASDIRECTED GINETTE Administration Sodium Chloride 10 ml 11/03/16 22:44 11/03/16 23:01 Saline Flush FLUSH 10 ml ONETIME PRN Administration PER RADIOLOGY PROTOCOL Discontinued Medications Generic Name Dose Route Start Last Admin Trade Name Freq PRN Reason Stop Dose Admin Hydromorphone HCl 1 mg 11/03/16 22:32 11/03/16 22:52 Dilaudid IVPUSH 11/03/16 22:33 1 mg ONETIME ONE Administration Hydromorphone HCl 0.5 mg 11/04/16 00:28 Dilaudid IVPUSH 11/04/16 00:29 ONETIME ONE Sodium Chloride 75 mls @ 3 mls/sec 11/03/16 22:44 11/03/16 23:02 Normal Saline IV 11/03/16 22:45 3 mls/sec ONETIME ONE Administration Iopamidol 100 ml 11/03/16 22:44 11/03/16 23:02 Isovue-300 (61%) IV 11/03/16 22:45 100 ml . DIRECTED PRN Administration RADIOLOGY EXAM Ondansetron HCl 4 mg 11/03/16 22:33 11/03/16 22:49 Zofran IVPUSH 11/03/16 22:34 4 mg ONETIME ONE Administration Departure - Departure Time of Disposition: 00:36 Disposition: Home, Self-Care 01 Condition: good Clinical Impression: Postoperative complication Qualifiers: Surgical complication system/body Area: subcutaneous tissue Surgical complication type: hematoma Procedure type: non-dermatologic Qualified Code(s): L76.32 - Postprocedural hematoma of skin and subcutaneous tissue following other procedure - Discharge Information Forms: ED Department Discharge Additional Instructions: We will be placing the results of this evenings CT report into the hands of Dr. Booker in the morning and notify him of the hemoglobin of 8.6 that you now have and if he feels that he needs to intervene or call you I am sure that he will or have his nurse do so. - My Orders Last 24 Hours: My Active Orders 11/03/16 22:28 Chest w Cont [CT] Stat 11/03/16 22:44 Sodium Chloride 0.9% [Saline Flush] 10 ml FLUSH ONETIME PRN 11/03/16 22:45 Sodium Chloride 0.9% [Normal Saline] 1,000 ml IV ASDIRECTED - Assessment/Plan Last 24 Hours: My Active Orders 11/03/16 22:28 Chest w Cont [CT] Stat 11/03/16 22:44 Sodium Chloride 0.9% [Saline Flush] 10 ml FLUSH ONETIME PRN 11/03/16 22:45 Sodium Chloride 0.9% [Normal Saline] 1,000 ml IV ASDIRECTED
[2016-11-04 01:27] VITALS: BP 128/60
== END 2016-11-04 01:28 | disposition home or self-care (01) ==
LOC: JP.ED 22:05
DX: L76.32 Postprocedural hematoma of skin and subcutaneous tissue following other procedure (principal); K21.9 Gastro-esophageal reflux disease without esophagitis; F41.9 Anxiety disorder, unspecified; F32.9 Major depressive disorder, single episode, unspecified; Z90.49 Acquired absence of other specified parts of digestive tract; Z98.890 Other specified postprocedural states; Z89.029 Acquired absence of unspecified finger(s); Z85.828 Personal history of other malignant neoplasm of skin; Z79.01 Long term (current) use of anticoagulants; Z79.899 Other long term (current) drug therapy
CPT/HCPCS: 36415; 71260; 80053; 82803; 83605; 85025; 85610; 86140; 96374; 96375; 99284; J1170; J2405; J7030; J7040; J7050; Q9967

== ENCOUNTER 2018-02-15 06:35 | Day surgery (SDC) | payer MEDICARE ==
[2018-02-15 07:09] VITALS: BP 169/89
[2018-02-15] MEDS ORDERED: Sodium Chloride 0.9% 10 ML Syringe FLUSH PRN (08:18)
--- NOTE | 2018-02-15 11:53 | OR ---
DATE OF PROCEDURE: 02/15/2018 POSTOPERATIVE CARE: Postoperative care will be provided mainly at the [address] [place] [address] [facility] in conjunction with [facility]. PREOPERATIVE DIAGNOSIS: Cataract, right eye. POSTOPERATIVE DIAGNOSIS: Cataract, right eye. PROCEDURE: Cataract extraction and phacoemulsification with intraocular lens placement, right eye. ANESTHESIA: Topical and intracameral. ESTIMATED BLOOD LOSS: Minimal. COMPLICATIONS: None. PATHOLOGY SPECIMENS: None. SURGICAL FINDINGS: None. INDICATION FOR PROCEDURE: The patient is a 77-year-old male with history of a visually significant cataract in the right eye, which interfered with activities of daily living. This consisted of a nuclear sclerosis cataract. Following careful discussion of the risks, benefits and alternatives to cataract extraction with intraocular lens placement including blindness and , the patient elected to proceed, and informed, written consent was obtained prior to the procedure. DESCRIPTION OF THE PROCEDURE: The patient was previously identified, and a eloina placed above the right eye. All sources, including the patient, indicated that the right eye was the correct eye. The patient was subsequently taken to the operating room where standard monitors were applied. The patient was then prepped and draped in the usual sterile fashion for ophthalmic surgery. Attention was first directed at the 12 o'clock position where a paracentesis port was fashioned. Shugar solution followed by Viscoat was instilled into the eye. Attention was then directed to the 8:30 position where a triplanar incision was made in a near-clear manner using a keratome. A continuous capsulorrhexis was then made using a combination of the cystotome and Utrata forceps. Hydrodissection was achieved using a balanced salt solution, and the lens rotated nicely. Phacoemulsification was then done using a modified [id number] technique without complication. Phaco time was 11.08. The remaining cortex was removed using the irrigation/aspiration handpiece. Provisc was then instilled into the eye. A Technis lens, model [id number], at 21.0 diopters was then placed in the capsular bag using an [place] injector. The remaining viscoelastic was removed using the irrigation/aspiration forceps. All wounds were then checked and found to be watertight. The lid speculum and drapes were removed. Maxitrol ointment was placed in the patient's right eye, and the eye was shielded. The patient tolerated the procedure well. The patient was instructed to follow up tomorrow. All needle and sponge counts were correct at the end of the procedure. Mala Smith MD /[id number]
== END 2018-02-15 08:00 | disposition home or self-care (01) ==
LOC: JP.SDS 06:35
PROVIDERS: ATTEND Ophthalmology
DX: H25.11 Age-related nuclear cataract, right eye (principal); D86.9 Sarcoidosis, unspecified; K21.9 Gastro-esophageal reflux disease without esophagitis
CPT/HCPCS: 66984; J7050; V2632

== ENCOUNTER 2018-03-22 06:27 | Day surgery (SDC) | payer MEDICARE ==
[~2018-03-22 06:27] MED LIST changes: -Bupivacaine 0.5% 50 ML MDV ONE; -Lidocaine 1% with EPINEPHrine 1:100,000 50 ML MDV ONE; +Sodium Chloride 0.9% 10 ML Syringe FLUSH PRN
[2018-03-22] MEDS ORDERED: Sodium Chloride 0.9% 10 ML Syringe FLUSH PRN (07:00)
[2018-03-22 08:17] VITALS: BP 158/74
--- NOTE | 2018-03-22 15:06 | OR ---
DATE OF PROCEDURE: 03/22/2018 POSTOPERATIVE CARE: Postoperative care will be provided mainly at the [address] [place] [address] [facility] in conjunction with [facility]. PREOPERATIVE DIAGNOSIS: Cataract, left eye. POSTOPERATIVE DIAGNOSIS: Cataract, left eye. PROCEDURE: Cataract extraction, phacoemulsification with intraocular lens placement, left eye. ANESTHESIA: Topical and intracameral. ESTIMATED BLOOD LOSS: Minimal. COMPLICATIONS: None. PATHOLOGY SPECIMENS: None. SURGICAL FINDINGS: None. INDICATION FOR PROCEDURE: The patient is a 77-year-old male with history of a visually significant cataract in the left eye, which interfered with activities of daily living. This consisted of a nuclear sclerosis cataract. Following careful discussion of the risks, benefits and alternatives to cataract extraction with intraocular lens placement including blindness and , the patient elected to proceed, and informed, written consent was obtained prior to the procedure. DESCRIPTION OF THE PROCEDURE: The patient was previously identified, and a eloina placed above the left eye. All sources, including the patient, indicated that the left eye was the correct eye. The patient was subsequently taken to the operating room where standard monitors were applied. The patient was then prepped and draped in the usual sterile fashion for ophthalmic surgery. Attention was first directed at the 12 o'clock position where a paracentesis port was fashioned. Shugar solution followed by Viscoat was instilled into the eye. Attention was then directed to the 8:30 position where a triplanar incision was made in a near-clear manner using a keratome. A continuous capsulorrhexis was then made using a combination of the cystotome and Utrata forceps. Hydrodissection was achieved using a balanced salt solution, and the lens rotated nicely. Phacoemulsification was then done using a modified [id number]-wrgxonr technique without complication. Phaco time was 7.09 CDE. The remaining cortex was removed using the irrigation/aspiration handpiece. Provisc was then instilled into the eye. A Technis lens, model [id number], at 21.0 diopters was then placed in the capsular bag using an [place] injector. The remaining viscoelastic was removed using the irrigation/aspiration forceps. All wounds were then checked and found to be watertight. The lid speculum and drapes were removed. Maxitrol ointment was placed in the patient's left eye, and the eye was shielded. The patient tolerated the procedure well. The patient was instructed to follow up tomorrow. All needle and sponge counts were correct at the end of the procedure. Mala Smith MD /[id number]
== END 2018-03-22 08:51 | disposition home or self-care (01) ==
LOC: JP.SDS 06:27
PROVIDERS: ATTEND Ophthalmology
DX: H25.12 Age-related nuclear cataract, left eye (principal); K21.9 Gastro-esophageal reflux disease without esophagitis
CPT/HCPCS: 66984; J7050; V2632

== ENCOUNTER 2022-06-28 06:52 | Day surgery (SDC) | payer MEDICARE ==
[2022-06-28] MEDS ORDERED: Propofol 200 MG/20 ML SDV ONE (07:00)
[2022-06-28] MEDS ORDERED: fentaNYL 100 MCG/2 ML SDV ONE (07:00)
[2022-06-28] MEDS ORDERED: Meropenem 500 MG in Sodium Chloride 0.9% 50 ML IV ONE (07:20)
[2022-06-28] MEDS ORDERED: Acetaminophen 500 MG Tab PO ONE (07:20)
[2022-06-28] MEDS ORDERED: Dextrose 5%-Lactated Ringers 1,000 ML IV SCH (07:23)
[2022-06-28] MEDS ORDERED: Meropenem 500 MG SDV ONE (07:53)
[2022-06-28] MEDS ORDERED: Bupivacaine 0.5%/EPINEPHrine 1:200,000 50 ML MDV ONE (07:54)
[2022-06-28] MEDS ORDERED: Lidocaine 1% 50 ML MDV ONE (07:54)
[2022-06-28] MEDS ORDERED: Bacitracin Oint 1 GM U/D Packet ONE (07:54)
[2022-06-28 10:38] VITALS: BP 142/70; PULSE 72
== END 2022-06-28 11:12 | disposition home or self-care (01) ==
LOC: JP.SDS 06:52
PROVIDERS: ATTEND Surgery
DX: L82.1 Other seborrheic keratosis (principal); L98.429 Non-pressure chronic ulcer of back with unspecified severity; K21.9 Gastro-esophageal reflux disease without esophagitis; N18.30 Chronic kidney disease, stage 3 unspecified; D86.9 Sarcoidosis, unspecified; Z79.899 Other long term (current) drug therapy
CPT/HCPCS: 11406; 12032; 87070; 87075; 87077; 87186; 87205; 88304; A9270; J2001; J2185; J2704; J3010; J3490; J7121

== ENCOUNTER 2023-01-19 10:10 | Emergency (ER) | payer MEDICARE ==
[2023-01-19 10:54] VITALS: PULSE 71
[2023-01-19 11:31] LABS: BASOPHILS ABSOLUTE AUTO 0.03 K/uL (0.00-0.10); BASOPHILS PERCENT AUTO 1.1 % (0.1-1.3); EOSINOPHILS ABSOLUTE AUTO 0.12 K/uL (0.00-0.40); EOSINOPHILS PERCENT AUTO 4.2 % (0.0-5.4); HEMATOCRIT 32.3 % (38.4-49.7); HEMOGLOBIN 10.4 g/dL (12.9-16.9); IMMATURE GRAN PERCENT AUTO 0.7 % (0.0-0.7); LYMPHOCYTES ABSOLUTE AUTO 0.43 K/uL (0.8-3.3); LYMPHOCYTES PERCENT AUTO 15.2 % (11.4-47.7); MEAN CORPUSCULAR HEMOGLOBIN 31.5 pg (31.6-35.5); MEAN CORPUSCULAR HGB CONC 32.2 g/dL (31.6-35.5); MEAN CORPUSCULAR VOLUME 97.9 fL (81.4-99.0); MONOCYTES ABSOLUTE AUTO 0.35 K/uL (0.20-0.90); MONOCYTES PERCENT AUTO 12.4 % (3.3-12.6); NEUTROPHILS ABSOLUTE AUTO 1.88 K/uL (1.0-7.6); NEUTROPHILS PERCENT AUTO 66.4 % (40.0-78.1); PLATELET COUNT,PLT 139 K/uL (130-375); WHITE BLOOD CELL COUNT,WBC 2.8 K/uL (3.2-11.0)
[2023-01-19 11:32] LABS: IMMATURE GRAN ABSOLUTE AUTO 0.02 K/uL (0.00-0.23)
[2023-01-19 11:56] LABS: A/G RATIO 0.9 (1.2-2.2); ALANINE AMINOTRANSFERASE,ALT 23 U/L (12-78); ALBUMIN 2.9 g/dL (3.4-5.0); ALKALINE PHOSPHATASE 133 U/L (46-116); ASPARTATE AMNIOTRANSFERASE,AST 18 U/L (15-37); BILIRUBIN TOTAL 0.4 mg/dL (0.2-1.0); BLOOD UREA NITROGEN,BUN 18 mg/dL (7-18); CALCIUM 8.3 mg/dL (8.5-10.1); CARBON DIOXIDE,CO2 30 mmol/L (21-32); CHLORIDE,CL 102 mmol/L (100-108); CREATININE 1.2 mg/dL (0.8-1.3); EST CRCL DRUG DOSING (CG) 51.19 mL/min; ESTIMATED GFR 60 mL/min (>60); GLUCOSE RANDOM 90 mg/dL (74-106); POTASSIUM,K 4.8 mmol/L (3.6-5.2); PROTEIN TOTAL,TP 6.3 g/dL (6.4-8.2); SODIUM,NA 139 mmol/L (140-148)
[2023-01-19 11:59] LABS: ANION GAP 11.8 mmol/L (5.0-14.0)
[2023-01-19 12:44] VITALS: BP 153/74
== END 2023-01-19 13:10 | disposition home or self-care (01) ==
LOC: JP.ED 10:10
DX: R20.0 Anesthesia of skin (principal); R07.89 Other chest pain; K21.9 Gastro-esophageal reflux disease without esophagitis; N18.30 Chronic kidney disease, stage 3 unspecified; Z79.82 Long term (current) use of aspirin; Z79.899 Other long term (current) drug therapy
CPT/HCPCS: 36415; 80053; 84484; 85025; 93005; 99285

== ENCOUNTER 2023-06-12 13:00 | Inpatient (IN) | payer MEDICARE ==
[2023-06-12 13:59] LABS: BASOPHILS PERCENT AUTO 0.4 % (0.1-1.3); EOSINOPHILS PERCENT AUTO 0.4 % (0.0-5.4); HEMATOCRIT 33.6 % (38.4-49.7); HEMOGLOBIN 10.6 g/dL (12.9-16.9); IMMATURE GRAN PERCENT AUTO 0.4 % (0.0-0.7); LYMPHOCYTES ABSOLUTE AUTO 0.41 K/uL (0.8-3.3); LYMPHOCYTES PERCENT AUTO 15.6 % (11.4-47.7); MEAN CORPUSCULAR HGB CONC 31.5 g/dL (31.6-35.5); MEAN CORPUSCULAR VOLUME 98.2 fL (81.4-99.0); MONOCYTES PERCENT AUTO 26.7 % (3.3-12.6); NEUTROPHILS ABSOLUTE AUTO 1.48 K/uL (1.0-7.6); NEUTROPHILS PERCENT AUTO 56.5 % (40.0-78.1); PLATELET COUNT,PLT 118 K/uL (130-375); RED BLOOD CELL COUNT 3.42 M/uL (4.14-5.76); WHITE BLOOD CELL COUNT,WBC 2.6 K/uL (3.2-11.0)
[2023-06-12 14:00] LABS: BASOPHILS ABSOLUTE AUTO 0.01 K/uL (0.00-0.10); EOSINOPHILS ABSOLUTE AUTO 0.01 K/uL (0.00-0.40); IMMATURE GRAN ABSOLUTE AUTO 0.01 K/uL (0.00-0.23)
[2023-06-12 14:20] LABS: LACTIC ACID 1.1 mmol/L (0.4-2.0)
[2023-06-12 14:26] LABS: A/G RATIO 0.8 (1.2-2.2); ALANINE AMINOTRANSFERASE,ALT 17 U/L (12-78); ALBUMIN 2.7 g/dL (3.4-5.0); ALKALINE PHOSPHATASE 137 U/L (46-116); ANION GAP 7.7 mmol/L (5.0-14.0); ASPARTATE AMNIOTRANSFERASE,AST 27 U/L (15-37); BILIRUBIN TOTAL 0.4 mg/dL (0.2-1.0); BLOOD UREA NITROGEN,BUN 18 mg/dL (7-18); CALCIUM 7.9 mg/dL (8.5-10.1); CARBON DIOXIDE,CO2 29 mmol/L (21-32); CHLORIDE,CL 103 mmol/L (100-108); CREATININE 1.2 mg/dL (0.8-1.3); EST CRCL DRUG DOSING (CG) 51.19 mL/min; ESTIMATED GFR 60 mL/min (>60); GLUCOSE RANDOM 90 mg/dL (74-106); POTASSIUM,K 4.3 mmol/L (3.6-5.2); PROTEIN TOTAL,TP 6.1 g/dL (6.4-8.2); SODIUM,NA 140 mmol/L (140-148)
[2023-06-12 14:48] LABS: INFLUENZA A NAA NEGATIVE (NEGATIVE); INFLUENZA B NAA NEGATIVE (NEGATIVE); RESPIRATORY SYNCYTIAL VIR NAA NEGATIVE (NEGATIVE)
[2023-06-12 14:52] LABS: CORONAVIRUS COVID-19 NAA POSITIVE (NEGATIVE)
[2023-06-12] MEDS ORDERED: Sodium Chloride 0.9% 1,000 ML IV SCH (15:15)
[2023-06-12 15:34] LABS: BASE EXCESS ARTERIAL 1.9 mm/L; BICARBONATE,ARTERIAL 26.6 mmol/L (22.0-26.0); CARBOXYHEMOGLOBIN 1.7 % (0.0-1.6); METHEMOGLOBIN 1.1 %; O2 SATURATION ARTERIAL 94.9 % (95.0-98.0); OXYHEMOGLOBIN 92.2 %; PCO2 ARTERIAL 44.3 mmHg (35.0-42.0); PO2 ARTERIAL 77.6 mmHg (75.0-100.0); TOTAL HEMOGLOBIN 11.1 g/dL (13.5-18.0)
[2023-06-12] MEDS ORDERED: Warfarin 5 MG Tab PO SCH (16:48)
[2023-06-12] MEDS ORDERED: HYDROmorphone 2 MG Tab PO PRN (16:48)
[2023-06-12] MEDS ORDERED: Ondansetron 4 MG/2 ML SDV IV PRN (16:48)
[2023-06-12] MEDS ORDERED: Albuterol 6.7 GM Inhaler INH PRN (16:48)
[2023-06-12] MEDS ORDERED: Non-Formulary Medication 1 Each (Gabapentin [Neurontin] 600 MG Tablet) PO SCH (16:48)
[2023-06-12] MEDS ORDERED: Sodium Chloride 0.9% 10 ML Syringe FLUSH PRN (16:48)
[2023-06-12] MEDS ORDERED: Iopamidol 612 MG/ML 100 ML Bottle IV SCH (17:15)
[2023-06-12] MEDS ORDERED: Sodium Chloride 0.9% 50 ML IV SCH (17:15)
[2023-06-12 17:28] LABS: PROTHROMBIN TIME 19.1 sec (9.2-10.6)
[2023-06-12] MEDS ORDERED: REMDESIVIR 200 MG in Sodium Chloride 0.9% 250 ML IV ONE (18:00)
[2023-06-12] MEDS: Dexamethasone 4 MG/ML SDV IVPUSH SCH (18:19)
[2023-06-12] MEDS: Warfarin 5 MG Tab PO SCH (18:57)
[2023-06-12] MEDS: Pregabalin 100 MG Cap PO SCH (20:41)
[2023-06-12] MEDS: Docusate Sodium 100 MG Cap PO SCH (20:41)
[2023-06-12] MEDS ORDERED: SAW PALMETTO 500 MG PO SCH (21:00)
[2023-06-13 06:21] LABS: HEMATOCRIT 33.9 % (38.4-49.7); MEAN CORPUSCULAR HEMOGLOBIN 31.7 pg (31.6-35.5); MEAN CORPUSCULAR HGB CONC 32.4 g/dL (31.6-35.5); MEAN CORPUSCULAR VOLUME 97.7 fL (81.4-99.0); RED BLOOD CELL COUNT 3.47 M/uL (4.14-5.76); WHITE BLOOD CELL COUNT,WBC 1.9 K/uL (3.2-11.0)
[2023-06-13 06:26] LABS: INR 2.2; PROTHROMBIN TIME 21.2 sec (9.2-10.6)
[2023-06-13 06:29] LABS: A/G RATIO 0.7 (1.2-2.2); ALANINE AMINOTRANSFERASE,ALT 15 U/L (12-78); ALBUMIN 2.5 g/dL (3.4-5.0); ALKALINE PHOSPHATASE 130 U/L (46-116); ASPARTATE AMNIOTRANSFERASE,AST 21 U/L (15-37); BILIRUBIN TOTAL 0.3 mg/dL (0.2-1.0); BLOOD UREA NITROGEN,BUN 19 mg/dL (7-18); CALCIUM 7.6 mg/dL (8.5-10.1); CARBON DIOXIDE,CO2 31 mmol/L (21-32); CHLORIDE,CL 103 mmol/L (100-108); CREATININE 1.1 mg/dL (0.8-1.3); EST CRCL DRUG DOSING (CG) 55.85 mL/min; ESTIMATED GFR 67 mL/min (>60); GLUCOSE RANDOM 109 mg/dL (74-106); MAGNESIUM 1.8 mg/dL (1.8-2.4); POTASSIUM,K 4.9 mmol/L (3.6-5.2); PROTEIN TOTAL,TP 5.9 g/dL (6.4-8.2); SODIUM,NA 139 mmol/L (140-148)
[2023-06-13 06:32] LABS: ANION GAP 9.9 mmol/L (5.0-14.0)
[2023-06-13] MEDS: carBAMazepine 200 MG Tab PO SCH (08:18)
[2023-06-13] MEDS: Aspirin 81 MG Tab.Chew PO SCH (08:20)
[2023-06-13] MEDS: Pantoprazole 40 MG Tab.CR PO SCH (08:20)
[2023-06-13] MEDS: Docusate Sodium 100 MG Cap PO SCH ×2 (08:20→20:16)
[2023-06-13] MEDS: Pregabalin 100 MG Cap PO SCH ×3 (08:24→20:16)
[2023-06-13] MEDS ORDERED: SAW PALMETTO 500 MG PO SCH (09:00)
[2023-06-13] MEDS: Warfarin 5 MG Tab PO SCH (14:02)
[2023-06-13] MEDS ORDERED: Hypromellose 0.3% Ophth Soln 15 ML Bottle EYEBOTH SCH (16:33)
[2023-06-13] MEDS: Dexamethasone 4 MG/ML SDV IVPUSH SCH (17:19)
[2023-06-13] MEDS: REMDESIVIR 100 MG in Sodium Chloride 0.9% 100 ML IV SCH (17:19)
[2023-06-13] MEDS: Polyethylene Glycol 3350 Powder 17 GM Packet PO PRN (18:35)
[2023-06-14 06:09] LABS: INR 2.7; PROTHROMBIN TIME 25.7 sec (9.2-10.6)
[2023-06-14 06:14] LABS: A/G RATIO 0.7 (1.2-2.2); ALANINE AMINOTRANSFERASE,ALT 20 U/L (12-78); ALBUMIN 2.5 g/dL (3.4-5.0); ALKALINE PHOSPHATASE 117 U/L (46-116); ASPARTATE AMNIOTRANSFERASE,AST 19 U/L (15-37); BILIRUBIN TOTAL 0.3 mg/dL (0.2-1.0); BLOOD UREA NITROGEN,BUN 23 mg/dL (7-18); CALCIUM 7.8 mg/dL (8.5-10.1); CARBON DIOXIDE,CO2 31 mmol/L (21-32); CHLORIDE,CL 103 mmol/L (100-108); EST CRCL DRUG DOSING (CG) 61.43 mL/min; ESTIMATED GFR 75 mL/min (>60); GLUCOSE RANDOM 119 mg/dL (74-106); POTASSIUM,K 4.9 mmol/L (3.6-5.2); PROTEIN TOTAL,TP 5.9 g/dL (6.4-8.2); SODIUM,NA 138 mmol/L (140-148)
[2023-06-14 06:15] LABS: ANION GAP 8.9 mmol/L (5.0-14.0)
[2023-06-14] MEDS: Pantoprazole 40 MG Tab.CR PO SCH (08:21)
[2023-06-14] MEDS: Docusate Sodium 100 MG Cap PO SCH ×2 (08:21→20:10)
[2023-06-14] MEDS: carBAMazepine 200 MG Tab PO SCH (08:21)
[2023-06-14] MEDS: Sulfamethoxazole/Trimethoprim 800-160 MG Tab PO SCH (08:21)
[2023-06-14] MEDS: Pregabalin 100 MG Cap PO SCH ×3 (08:21→20:10)
[2023-06-14] MEDS: Aspirin 81 MG Tab.Chew PO SCH (08:21)
[2023-06-14] MEDS: Warfarin 5 MG Tab PO SCH (13:24)
[2023-06-14] MEDS: Dexamethasone 4 MG/ML SDV IVPUSH SCH (18:17)
[2023-06-14] MEDS: REMDESIVIR 100 MG in Sodium Chloride 0.9% 100 ML IV SCH (18:18)
[2023-06-15] MEDS: Melatonin 3 MG Tab PO PRN ×2 (01:02→23:36)
[2023-06-15 05:52] LABS: PROTHROMBIN TIME 28.6 sec (9.2-10.6)
[2023-06-15] MEDS: carBAMazepine 200 MG Tab PO SCH (08:39)
[2023-06-15] MEDS: Aspirin 81 MG Tab.Chew PO SCH (08:39)
[2023-06-15] MEDS: Docusate Sodium 100 MG Cap PO SCH ×2 (08:39→20:23)
[2023-06-15] MEDS: Pregabalin 100 MG Cap PO SCH ×3 (08:39→20:23)
[2023-06-15] MEDS: Pantoprazole 40 MG Tab.CR PO SCH (08:40)
[2023-06-15] MEDS ORDERED: Albuterol 0.083% 2.5 MG/3 ML Neb Soln INH PRN (09:00)
[2023-06-15] MEDS ORDERED: PRO IV SCH (09:00)
[2023-06-15] MEDS ORDERED: EPINEPHrine 1 MG/ML SDV IM PRN (09:00)
[2023-06-15] MEDS ORDERED: Famotidine 20 MG/2 ML SDV IV PRN (09:00)
[2023-06-15] MEDS ORDERED: diphenhydrAMINE 25 MG Cap PO ONE (09:00)
[2023-06-15] MEDS ORDERED: Sodium Chloride 0.9% 500 ML IV SCH (09:00)
[2023-06-15] MEDS ORDERED: IMMUN GLOB IV SCH (09:00)
[2023-06-15] MEDS ORDERED: IGA IV SCH (09:00)
[2023-06-15] MEDS ORDERED: Hydrocortisone Sodium Succinate 100 MG/2 ML SDV IV PRN (09:00)
[2023-06-15] MEDS ORDERED: diphenhydrAMINE 50 MG/ML SDV IV PRN (09:00)
[2023-06-15] MEDS ORDERED: Acetaminophen 325 MG Tab PO ONE (09:00)
[2023-06-15] MEDS: Warfarin 2.5 MG Tab PO SCH (13:09)
[2023-06-15] MEDS: Dexamethasone 4 MG/ML SDV IVPUSH SCH (18:21)
[2023-06-15] MEDS: REMDESIVIR 100 MG in Sodium Chloride 0.9% 100 ML IV SCH (18:22)
[2023-06-16 05:31] LABS: HEMATOCRIT 29.1 % (38.4-49.7); HEMOGLOBIN 9.6 g/dL (12.9-16.9); MEAN CORPUSCULAR HEMOGLOBIN 31.4 pg (31.6-35.5); MEAN CORPUSCULAR VOLUME 95.1 fL (81.4-99.0); RED BLOOD CELL COUNT 3.06 M/uL (4.14-5.76)
[2023-06-16 05:41] LABS: INR 3.2
[2023-06-16 05:52] LABS: A/G RATIO 0.5 (1.2-2.2); ALANINE AMINOTRANSFERASE,ALT 26 U/L (12-78); ALBUMIN 2.2 g/dL (3.4-5.0); ALKALINE PHOSPHATASE 94 U/L (46-116); ASPARTATE AMNIOTRANSFERASE,AST 26 U/L (15-37); BILIRUBIN TOTAL 0.3 mg/dL (0.2-1.0); BLOOD UREA NITROGEN,BUN 24 mg/dL (7-18); CALCIUM 7.8 mg/dL (8.5-10.1); CARBON DIOXIDE,CO2 30 mmol/L (21-32); CHLORIDE,CL 102 mmol/L (100-108); EST CRCL DRUG DOSING (CG) 61.43 mL/min; ESTIMATED GFR 75 mL/min (>60); GLUCOSE RANDOM 118 mg/dL (74-106); POTASSIUM,K 4.5 mmol/L (3.6-5.2); PROTEIN TOTAL,TP 6.8 g/dL (6.4-8.2); SODIUM,NA 137 mmol/L (140-148)
[2023-06-16 05:53] LABS: WHITE BLOOD CELL COUNT,WBC 0.9 K/uL (3.2-11.0)
[2023-06-16 05:59] LABS: ANION GAP 9.5 mmol/L (5.0-14.0)
[2023-06-16] MEDS: Pantoprazole 40 MG Tab.CR PO SCH (08:04)
[2023-06-16] MEDS: Aspirin 81 MG Tab.Chew PO SCH (08:04)
[2023-06-16] MEDS: Sulfamethoxazole/Trimethoprim 800-160 MG Tab PO SCH (08:05)
[2023-06-16] MEDS: Docusate Sodium 100 MG Cap PO SCH ×2 (08:05→20:51)
[2023-06-16] MEDS: carBAMazepine 200 MG Tab PO SCH (08:05)
[2023-06-16] MEDS: Pregabalin 100 MG Cap PO SCH ×3 (08:55→20:51)
[2023-06-16] MEDS ORDERED: diphenhydrAMINE 25 MG Cap PO ONE (09:00)
[2023-06-16] MEDS ORDERED: IMMUN GLOB IV SCH (09:00)
[2023-06-16] MEDS ORDERED: diphenhydrAMINE 50 MG/ML SDV IV PRN (09:00)
[2023-06-16] MEDS ORDERED: IGA IV SCH (09:00)
[2023-06-16] MEDS ORDERED: EPINEPHrine 1 MG/ML SDV IM PRN (09:00)
[2023-06-16] MEDS ORDERED: Acetaminophen 325 MG Tab PO ONE (09:00)
[2023-06-16] MEDS ORDERED: Albuterol 0.083% 2.5 MG/3 ML Neb Soln INH PRN (09:00)
[2023-06-16] MEDS ORDERED: PRO IV SCH (09:00)
[2023-06-16] MEDS ORDERED: Sodium Chloride 0.9% 500 ML IV SCH (09:00)
[2023-06-16] MEDS ORDERED: Hydrocortisone Sodium Succinate 100 MG/2 ML SDV IV PRN (09:00)
[2023-06-16] MEDS ORDERED: Famotidine 20 MG/2 ML SDV IV PRN (09:00)
[2023-06-16 09:40] LABS: EOSINOPHILS PERCENT AUTO 0.7 % (0.0-5.4); HEMATOCRIT 36.9 % (38.4-49.7); HEMOGLOBIN 11.9 g/dL (12.9-16.9); LYMPHOCYTES ABSOLUTE AUTO 0.42 K/uL (0.8-3.3); LYMPHOCYTES PERCENT AUTO 27.8 % (11.4-47.7); MEAN CORPUSCULAR HEMOGLOBIN 31.2 pg (31.6-35.5); MEAN CORPUSCULAR HGB CONC 32.2 g/dL (31.6-35.5); MEAN CORPUSCULAR VOLUME 96.6 fL (81.4-99.0); MONOCYTES ABSOLUTE AUTO 0.28 K/uL (0.20-0.90); MONOCYTES PERCENT AUTO 18.5 % (3.3-12.6); PLATELET COUNT,PLT 133 K/uL (130-375); RED BLOOD CELL COUNT 3.82 M/uL (4.14-5.76); WHITE BLOOD CELL COUNT,WBC 1.5 K/uL (3.2-11.0)
[2023-06-16 09:56] LABS: EOSINOPHILS ABSOLUTE AUTO 0.01 K/uL (0.00-0.40)
[2023-06-16] MEDS: Warfarin 2.5 MG Tab PO SCH (14:37)
[2023-06-16] MEDS: Dexamethasone 4 MG/ML SDV IVPUSH SCH (17:16)
[2023-06-16] MEDS: REMDESIVIR 100 MG in Sodium Chloride 0.9% 100 ML IV SCH (17:17)
[2023-06-16] MEDS: Melatonin 3 MG Tab PO PRN (20:51)
[2023-06-17 06:05] LABS: INR 2.7; PROTHROMBIN TIME 25.7 sec (9.2-10.6)
[2023-06-17] MEDS: Pantoprazole 40 MG Tab.CR PO SCH (07:15)
[2023-06-17] MEDS: carBAMazepine 200 MG Tab PO SCH (09:36)
[2023-06-17] MEDS: Pregabalin 100 MG Cap PO SCH ×3 (09:36→20:48)
[2023-06-17] MEDS: Aspirin 81 MG Tab.Chew PO SCH (09:36)
[2023-06-17] MEDS: Docusate Sodium 100 MG Cap PO SCH ×2 (09:36→20:48)
[2023-06-17] MEDS: Warfarin 2.5 MG Tab PO SCH (14:19)
[2023-06-17] MEDS: Melatonin 3 MG Tab PO PRN (20:48)
[2023-06-18 06:02] LABS: INR 1.9; PROTHROMBIN TIME 18.9 sec (9.2-10.6)
[2023-06-18] MEDS: Acetaminophen 325 MG Tab PO PRN (08:36)
[2023-06-18] MEDS: Aspirin 81 MG Tab.Chew PO SCH (08:37)
[2023-06-18] MEDS: Pantoprazole 40 MG Tab.CR PO SCH (08:37)
[2023-06-18] MEDS: Pregabalin 100 MG Cap PO SCH ×3 (08:37→21:16)
[2023-06-18] MEDS: carBAMazepine 200 MG Tab PO SCH (08:37)
[2023-06-18] MEDS: Docusate Sodium 100 MG Cap PO SCH ×2 (08:37→21:16)
[2023-06-18] MEDS: Warfarin 5 MG Tab PO SCH (13:21)
[2023-06-19 05:42] LABS: INR 1.6; PROTHROMBIN TIME 15.5 sec (9.2-10.6)
[2023-06-19] MEDS: Aspirin 81 MG Tab.Chew PO SCH (08:15)
[2023-06-19] MEDS: Pregabalin 100 MG Cap PO SCH ×3 (08:15→20:14)
[2023-06-19] MEDS: Docusate Sodium 100 MG Cap PO SCH ×2 (08:15→20:14)
[2023-06-19] MEDS: Pantoprazole 40 MG Tab.CR PO SCH (08:15)
[2023-06-19] MEDS: Sulfamethoxazole/Trimethoprim 800-160 MG Tab PO SCH (08:16)
[2023-06-19] MEDS: carBAMazepine 200 MG Tab PO SCH (08:16)
[2023-06-19] MEDS: Warfarin 5 MG Tab PO SCH (13:33)
[2023-06-20 04:55] LABS: HEMOGLOBIN 10.1 g/dL (12.9-16.9); MEAN CORPUSCULAR HEMOGLOBIN 31.6 pg (31.6-35.5); MEAN CORPUSCULAR HGB CONC 33.7 g/dL (31.6-35.5); MEAN CORPUSCULAR VOLUME 93.8 fL (81.4-99.0); RED BLOOD CELL COUNT 3.2 M/uL (4.14-5.76); WHITE BLOOD CELL COUNT,WBC 3.1 K/uL (3.2-11.0)
[2023-06-20 05:07] LABS: INR 1.5
[2023-06-20 05:11] LABS: CALCIUM 8.1 mg/dL (8.5-10.1); CREATININE 1.2 mg/dL (0.8-1.3); EST CRCL DRUG DOSING (CG) 51.19 mL/min; POTASSIUM,K 4.2 mmol/L (3.6-5.2)
[2023-06-20 05:26] LABS: ANION GAP 9.2 mmol/L (5.0-14.0)
[2023-06-20] MEDS: Pantoprazole 40 MG Tab.CR PO SCH (07:53)
[2023-06-20] MEDS: Aspirin 81 MG Tab.Chew PO SCH (08:09)
[2023-06-20] MEDS: Docusate Sodium 100 MG Cap PO SCH ×2 (08:09→20:43)
[2023-06-20] MEDS: carBAMazepine 200 MG Tab PO SCH (08:09)
[2023-06-20] MEDS: Pregabalin 100 MG Cap PO SCH ×3 (08:11→20:43)
[2023-06-20] MEDS: Polyethylene Glycol 3350 Powder 17 GM Packet PO PRN (09:28)
[2023-06-20] MEDS ORDERED: Warfarin 2.5 MG Tab PO SCH (13:00)
[2023-06-21 06:13] LABS: INR 1.8; PROTHROMBIN TIME 17.5 sec (9.2-10.6)
[2023-06-21] MEDS: Pantoprazole 40 MG Tab.CR PO SCH (07:25)
[2023-06-21] MEDS: Docusate Sodium 100 MG Cap PO SCH (08:50)
[2023-06-21] MEDS: Sulfamethoxazole/Trimethoprim 800-160 MG Tab PO SCH (08:50)
[2023-06-21] MEDS: carBAMazepine 200 MG Tab PO SCH (08:50)
[2023-06-21] MEDS: Aspirin 81 MG Tab.Chew PO SCH (08:50)
[2023-06-21] MEDS: Polyethylene Glycol 3350 Powder 17 GM Packet PO PRN (08:51)
[2023-06-21] MEDS: Pregabalin 100 MG Cap PO SCH (08:54)
[2023-06-21] MEDS ORDERED: Bisacodyl 10 MG Supp RECTAL ONE (09:10)
[2023-06-21 11:26] VITALS: BP 119/51; PULSE 96
[2023-06-21] MEDS: Acetaminophen 325 MG Tab PO PRN (12:18)
== END 2023-06-21 12:37 | DRG 177 ==
LOC: JP.ED 13:00 → JP.MS 16:08
PROVIDERS: ADMIT Hospitalist; ATTEND Internal Medicine
PROC: XW033E5 Introduction of Remdesivir Anti-infective into Peripheral Vein, Percutaneous Approach, New Technology Group 5 (ICD-10-PCS; principal; 2023-06-12)
PROC: 3E0333Z Introduction of Anti-inflammatory into Peripheral Vein, Percutaneous Approach (ICD-10-PCS; 2023-06-12)
PROC: 4A033R1 Measurement of Arterial Saturation, Peripheral, Percutaneous Approach (ICD-10-PCS; 2023-06-12)
PROC: 8E0ZXY6 Isolation (ICD-10-PCS; 2023-06-12)
DX: U07.1 COVID-19 (principal); J12.82 Pneumonia due to coronavirus disease 2019; J96.01 Acute respiratory failure with hypoxia; G61.81 Chronic inflammatory demyelinating polyneuritis; Z66 Do not resuscitate; K21.9 Gastro-esophageal reflux disease without esophagitis; M19.90 Unspecified osteoarthritis, unspecified site; N18.30 Chronic kidney disease, stage 3 unspecified; H91.90 Unspecified hearing loss, unspecified ear; F41.9 Anxiety disorder, unspecified; F32.A Depression, unspecified; K90.0 Celiac disease; Z79.82 Long term (current) use of aspirin; Z79.899 Other long term (current) drug therapy; Z79.01 Long term (current) use of anticoagulants; Z85.828 Personal history of other malignant neoplasm of skin; Z90.49 Acquired absence of other specified parts of digestive tract; Z98.890 Other specified postprocedural states; Z86.711 Personal history of pulmonary embolism; Z86.010 Personal history of colon polyps
CPT/HCPCS: 0241U; 36415; 36600; 71045; 71260; 80048; 80053; 82803; 83605; 83735; 84145; 85025; 85027; 85610; 97162; 97165; 97530; 99284; 99285; A9270-GY; J1100; J1459; J2405; J3490; J7030; J7050

== ENCOUNTER 2023-08-16 09:24 | Emergency (ER) | payer MEDICARE ==
[2023-08-16 09:32] VITALS: PULSE 90
[2023-08-16 10:28] LABS: INR 3.1; PROTHROMBIN TIME 29.1 sec (9.2-10.6)
[2023-08-16 11:08] VITALS: BP 156/68
== END 2023-08-16 10:51 | disposition home or self-care (01) ==
LOC: JP.ED 09:24
DX: L76.22 Postprocedural hemorrhage of skin and subcutaneous tissue following other procedure (principal); G61.81 Chronic inflammatory demyelinating polyneuritis; N18.4 Chronic kidney disease, stage 4 (severe); R03.0 Elevated blood-pressure reading, without diagnosis of hypertension; Z79.899 Other long term (current) drug therapy; Z79.01 Long term (current) use of anticoagulants; Y83.8 Other surgical procedures as the cause of abnormal reaction of the patient, or of later complication, without mention of misadventure at the time of the procedure
CPT/HCPCS: 36415; 85018; 85610; 99284

== ENCOUNTER 2023-09-20 22:53 | Inpatient (IN) | payer MEDICARE ==
[2023-09-20 23:28] LABS: BASOPHILS ABSOLUTE AUTO 0.02 K/uL (0.00-0.10); BASOPHILS PERCENT AUTO 0.7 % (0.1-1.3); EOSINOPHILS ABSOLUTE AUTO 0.07 K/uL (0.00-0.40); EOSINOPHILS PERCENT AUTO 2.5 % (0.0-5.4); HEMATOCRIT 33.2 % (38.4-49.7); HEMOGLOBIN 10.5 g/dL (12.9-16.9); LYMPHOCYTES ABSOLUTE AUTO 0.46 K/uL (0.8-3.3); LYMPHOCYTES PERCENT AUTO 16.2 % (11.4-47.7); MEAN CORPUSCULAR HEMOGLOBIN 28.9 pg (31.6-35.5); MEAN CORPUSCULAR HGB CONC 31.6 g/dL (31.6-35.5); MEAN CORPUSCULAR VOLUME 91.5 fL (81.4-99.0); MONOCYTES ABSOLUTE AUTO 0.38 K/uL (0.20-0.90); MONOCYTES PERCENT AUTO 13.4 % (3.3-12.6); NEUTROPHILS ABSOLUTE AUTO 1.91 K/uL (1.0-7.6); NEUTROPHILS PERCENT AUTO 67.2 % (40.0-78.1); PLATELET COUNT,PLT 111 K/uL (130-375); RED BLOOD CELL COUNT 3.63 M/uL (4.14-5.76); WHITE BLOOD CELL COUNT,WBC 2.8 K/uL (3.2-11.0)
[2023-09-20 23:50] LABS: ANION GAP 8.6 mmol/L (5.0-14.0); CALCIUM 8.5 mg/dL (8.5-10.1); CREATININE 1.2 mg/dL (0.8-1.3); EST CRCL DRUG DOSING (CG) 50.3 mL/min; POTASSIUM,K 3.8 mmol/L (3.6-5.2)
[2023-09-21 02:34] LABS: CORONAVIRUS COVID-19 NAA NEGATIVE (NEGATIVE); INFLUENZA A NAA NEGATIVE (NEGATIVE); INFLUENZA B NAA NEGATIVE (NEGATIVE); RESPIRATORY SYNCYTIAL VIR NAA NEGATIVE (NEGATIVE)
[2023-09-21] MEDS ORDERED: Sodium Chloride 0.9% 1,000 ML IV SCH (04:53)
[2023-09-21] MEDS ORDERED: Ondansetron 4 MG/2 ML SDV IV PRN (04:53)
[2023-09-21] MEDS ORDERED: Naloxone 0.4 MG/ML SDV IVPUSH PRN (04:53)
[2023-09-21] MEDS ORDERED: Morphine 2 MG/ML SYRINGE IVPUSH PRN (04:53)
[2023-09-21] MEDS: HYDROmorphone 2 MG Tab PO PRN (05:27)
[2023-09-21 05:50] LABS: BASOPHILS ABSOLUTE AUTO 0.03 K/uL (0.00-0.10); BASOPHILS PERCENT AUTO 0.9 % (0.1-1.3); EOSINOPHILS ABSOLUTE AUTO 0.09 K/uL (0.00-0.40); EOSINOPHILS PERCENT AUTO 2.7 % (0.0-5.4); HEMATOCRIT 31.1 % (38.4-49.7); IMMATURE GRAN PERCENT AUTO 0.3 % (0.0-0.7); LYMPHOCYTES ABSOLUTE AUTO 0.67 K/uL (0.8-3.3); LYMPHOCYTES PERCENT AUTO 20.2 % (11.4-47.7); MEAN CORPUSCULAR HEMOGLOBIN 29.5 pg (31.6-35.5); MEAN CORPUSCULAR HGB CONC 32.2 g/dL (31.6-35.5); MEAN CORPUSCULAR VOLUME 91.7 fL (81.4-99.0); MONOCYTES ABSOLUTE AUTO 0.44 K/uL (0.20-0.90); MONOCYTES PERCENT AUTO 13.3 % (3.3-12.6); NEUTROPHILS ABSOLUTE AUTO 2.07 K/uL (1.0-7.6); NEUTROPHILS PERCENT AUTO 62.6 % (40.0-78.1); PLATELET COUNT,PLT 106 K/uL (130-375); RED BLOOD CELL COUNT 3.39 M/uL (4.14-5.76); WHITE BLOOD CELL COUNT,WBC 3.3 K/uL (3.2-11.0)
[2023-09-21 05:53] LABS: IMMATURE GRAN ABSOLUTE AUTO 0.01 K/uL (0.00-0.23)
[2023-09-21 06:04] LABS: INR 2.1; PROTHROMBIN TIME 20.1 sec (9.2-10.6)
[2023-09-21 06:07] LABS: ANION GAP 6.9 mmol/L (5.0-14.0); CALCIUM 8.4 mg/dL (8.5-10.1); CREATININE 1.1 mg/dL (0.8-1.3); EST CRCL DRUG DOSING (CG) 56.49 mL/min; POTASSIUM,K 4.1 mmol/L (3.6-5.2)
[2023-09-21] MEDS: Pantoprazole 40 MG Tab.CR PO SCH (08:06)
[2023-09-21] MEDS: Acetaminophen 325 MG Tab PO PRN (08:14)
[2023-09-21] MEDS: Pregabalin 100 MG Cap PO SCH (08:14)
[2023-09-21] MEDS: Fludrocortisone 0.1 MG Tab PO SCH (09:17)
[2023-09-21] MEDS: Docusate Sodium 100 MG Cap PO SCH (09:17)
[2023-09-21] MEDS: Cyanocobalamin (Vitamin B12) 1,000 MCG Tab PO SCH (09:18)
[2023-09-21] MEDS: Zinc Sulfate 220 MG Cap PO SCH (09:18)
[2023-09-21] MEDS: Multivitamins with Iron/Calcium/Folic Acid/Minerals Tab PO SCH (09:18)
[2023-09-21] MEDS: Cholecalciferol (Vitamin D3) 25 MCG Tab PO SCH (09:18)
[2023-09-21] MEDS: Folic Acid 1 MG Tab PO SCH (09:18)
[2023-09-21] MEDS: carBAMazepine 200 MG Tab PO SCH (09:19)
[2023-09-21] MEDS: Warfarin 5 MG Tab PO SCH (13:17)
[2023-09-22 06:08] LABS: INR 2.9; PROTHROMBIN TIME 27.6 sec (9.2-10.6)
[2023-09-22] MEDS: predniSONE 1 MG Tab PO SCH (08:55)
[2023-09-22] MEDS: Ondansetron 4 MG Tab.DIS PO PRN (08:55)
[2023-09-22] MEDS ORDERED: Polyethylene Glycol 3350 Powder 17 GM Packet PO PRN (09:48)
[2023-09-22] MEDS ORDERED: Sodium Phosphate,Monobasic/Sodium Phosphate,Dibasic Enema 133 ML Bottle RECTAL PRN (13:24)
[2023-09-22] MEDS: Warfarin 2.5 MG Tab PO ONE (14:18)
[2023-09-22] MEDS: Polyethylene Glycol 3350 Powder 17 GM Packet PO ONE (14:19)
[2023-09-22] MEDS: Bisacodyl 10 MG Supp RECTAL ONE (18:17)
[2023-09-23 06:24] LABS: INR 2.3; PROTHROMBIN TIME 22.1 sec (9.2-10.6)
[2023-09-23] MEDS: Warfarin 5 MG Tab PO SCH (12:52)
[2023-09-23] MEDS: Melatonin 3 MG Tab PO SCH (20:14)
[2023-09-24 05:21] LABS: INR 1.6; PROTHROMBIN TIME 15.5 sec (9.2-10.6)
[2023-09-25 06:04] VITALS: BP 150/69; PULSE 68
[2023-09-25 06:11] LABS: INR 1.5; PROTHROMBIN TIME 14.8 sec (9.2-10.6)
[2023-09-25] MEDS ORDERED: Warfarin 2.5 MG Tab PO ONE (13:00)
[2023-09-26] MEDS ORDERED: Warfarin 5 MG Tab PO SCH (13:00)
== END 2023-09-25 11:05 | DRG 948 ==
LOC: JP.ED 22:53 → JP.2SS 09-21 02:03
PROVIDERS: ADMIT Hospitalist; ATTEND Internal Medicine
DX: R53.1 Weakness (principal); G61.81 Chronic inflammatory demyelinating polyneuritis; D84.9 Immunodeficiency, unspecified; R53.83 Other fatigue; Z66 Do not resuscitate; D86.0 Sarcoidosis of lung; W19.XXXA Unspecified fall, initial encounter; K90.0 Celiac disease; M25.552 Pain in left hip; F41.9 Anxiety disorder, unspecified; F32.A Depression, unspecified; K21.9 Gastro-esophageal reflux disease without esophagitis; H91.90 Unspecified hearing loss, unspecified ear; M19.90 Unspecified osteoarthritis, unspecified site; Z79.82 Long term (current) use of aspirin; Z79.01 Long term (current) use of anticoagulants; Z86.718 Personal history of other venous thrombosis and embolism; Z98.49 Cataract extraction status, unspecified eye; Z90.49 Acquired absence of other specified parts of digestive tract; Z90.89 Acquired absence of other organs; Z98.890 Other specified postprocedural states; Z86.010 Personal history of colon polyps; Z86.711 Personal history of pulmonary embolism; Z79.899 Other long term (current) drug therapy; W01.0XXA Fall on same level from slipping, tripping and stumbling without subsequent striking against object, initial encounter
CPT/HCPCS: 0241U; 36415; 72190; 80048; 85025; 85610; 97110; 97161; 97165; 97530; 99231; 99232; 99239; 99283; 99285; 99222; A9270-GY; J7512; Q0162; U0002

== ENCOUNTER 2023-11-08 06:05 | Observation (INO) | payer MEDICARE ==
[2023-11-08] MEDS: Ketorolac 30 MG/ML SDV IM ONE (06:57)
[2023-11-08] MEDS: Ketorolac 30 MG/ML SDV IVPUSH ONE (07:03)
[2023-11-08 07:04] LABS: BASOPHILS PERCENT AUTO 0.6 % (0.1-1.3); EOSINOPHILS ABSOLUTE AUTO 0.13 K/uL (0.00-0.40); HEMATOCRIT 31.2 % (38.4-49.7); HEMOGLOBIN 10.2 g/dL (12.9-16.9); IMMATURE GRAN PERCENT AUTO 0.3 % (0.0-0.7); LYMPHOCYTES ABSOLUTE AUTO 0.28 K/uL (0.8-3.3); LYMPHOCYTES PERCENT AUTO 8.7 % (11.4-47.7); MEAN CORPUSCULAR HEMOGLOBIN 29.7 pg (31.6-35.5); MEAN CORPUSCULAR HGB CONC 32.7 g/dL (31.6-35.5); MONOCYTES ABSOLUTE AUTO 0.38 K/uL (0.20-0.90); MONOCYTES PERCENT AUTO 11.8 % (3.3-12.6); NEUTROPHILS ABSOLUTE AUTO 2.39 K/uL (1.0-7.6); NEUTROPHILS PERCENT AUTO 74.6 % (40.0-78.1); PLATELET COUNT,PLT 133 K/uL (130-375); RED BLOOD CELL COUNT 3.43 M/uL (4.14-5.76); WHITE BLOOD CELL COUNT,WBC 3.2 K/uL (3.2-11.0)
[2023-11-08 07:06] LABS: BASOPHILS ABSOLUTE AUTO 0.02 K/uL (0.00-0.10); IMMATURE GRAN ABSOLUTE AUTO 0.01 K/uL (0.00-0.23)
[2023-11-08 07:17] LABS: APPEARANCE,URINE CLEAR (CLEAR); BILIRUBIN,URINE NEGATIVE (NEGATIVE); COLOR,URINE YELLOW (YELLOW); GLUCOSE,URINE NEGATIVE (NEGATIVE); KETONES,URINE NEGATIVE (NEGATIVE); LEUKOCYTE ESTERASE,URINE NEGATIVE (NEGATIVE); NITRITE,URINE NEGATIVE (NEGATIVE); OCCULT BLOOD,URINE NEGATIVE (NEGATIVE); PROTEIN,URINE NEGATIVE (NEGATIVE); UROBILINOGEN,URINE 0.2 EU/dL (0.2-1.0)
[2023-11-08 07:22] LABS: A/G RATIO 0.3 (1.2-2.2); ALANINE AMINOTRANSFERASE,ALT 26 U/L (12-78); ALKALINE PHOSPHATASE 203 U/L (46-116); ANION GAP 10.4 mmol/L (5.0-14.0); ASPARTATE AMNIOTRANSFERASE,AST 34 U/L (15-37); BILIRUBIN TOTAL 0.3 mg/dL (0.2-1.0); BLOOD UREA NITROGEN,BUN 17 mg/dL (7-18); CALCIUM 8.6 mg/dL (8.5-10.1); CARBON DIOXIDE,CO2 29 mmol/L (21-32); CHLORIDE,CL 102 mmol/L (100-108); EST CRCL DRUG DOSING (CG) 60.36 mL/min; ESTIMATED GFR 74 mL/min (>60); GLUCOSE RANDOM 101 mg/dL (74-106); POTASSIUM,K 4.4 mmol/L (3.6-5.2); PROTEIN TOTAL,TP 8.6 g/dL (6.4-8.2); SODIUM,NA 137 mmol/L (140-148)
[2023-11-08 07:33] LABS: AMORPHOUS SEDIMENT,URINE NOT SEEN; BACTERIA,URINE NOT SEEN; EPITHELIAL CELLS,URINE NOT SEEN; MUCUS,URINE NOT SEEN; RBC,URINE 0-5 (0-5); WBC,URINE 0-5 (0-5)
[2023-11-08] MEDS ORDERED: Non-Formulary Medication 1 Each (Folic Acid [Folic Acid] 1 MG Tablet) PO SCH (12:26)
[2023-11-08] MEDS ORDERED: PANTOPRAZOLE SODIUM 40 MG PO SCH (12:26)
[2023-11-08] MEDS ORDERED: TRIMETHOPRIM PO SCH (12:26)
[2023-11-08] MEDS ORDERED: Albuterol 0.083% 2.5 MG/3 ML Neb Soln NEB PRN (12:26)
[2023-11-08] MEDS ORDERED: Sennosides/Docusate Sodium 50-8.6 MG Tab PO PRN (12:26)
[2023-11-08] MEDS ORDERED: PREDNISONE 1 MG PO SCH (12:26)
[2023-11-08] MEDS ORDERED: ACETAMINOPHEN 325 MG PO PRN (12:26)
[2023-11-08] MEDS ORDERED: Magnesium Hydroxide 400 MG/5 ML Susp 30 ML Cup PO PRN (12:26)
[2023-11-08] MEDS ORDERED: CARBAMAZEPINE 200 MG PO SCH (12:26)
[2023-11-08] MEDS ORDERED: FLUDROCORTISONE 0.1 MG PO SCH (12:26)
[2023-11-08] MEDS ORDERED: [UNRECOGNIZED DRUG - OTHER] PO SCH (12:26)
[2023-11-08] MEDS ORDERED: Ondansetron 4 MG/2 ML SDV IV PRN (12:26)
[2023-11-08] MEDS ORDERED: SULFAMETHOXAZOLE PO SCH (12:26)
[2023-11-08] MEDS: HYDROmorphone 2 MG Tab PO PRN (14:08)
[2023-11-08] MEDS: Acetaminophen 325 MG Tab PO PRN (14:08)
[2023-11-08] MEDS: PREDNISONE 1 MG PO ONE (17:03)
[2023-11-08] MEDS: Sulfamethoxazole/Trimethoprim 800-160 MG Tab (PTOM) PO SCH (17:05)
[2023-11-08] MEDS: Apixaban 5 MG Tab (PTOM) PO SCH (20:08)
[2023-11-08] MEDS: SAW PALMETTO 500 MG PO SCH (20:09)
[2023-11-08] MEDS: CARBAMAZEPINE 200 MG PO SCH (20:09)
[2023-11-08] MEDS: Pregabalin 100 MG Cap PO SCH (20:12)
[2023-11-08] MEDS ORDERED: Non-Formulary Medication 1 Each (Apixaban [Eliquis] 5 MG Tablet) PO SCH (21:00)
[2023-11-08] MEDS ORDERED: SAW PALMETTO 500 MG PO SCH (21:00)
[2023-11-09 05:15] VITALS: BP 161/77; PULSE 89
[2023-11-09] MEDS: Pantoprazole 40 MG Tab.CR (PTOM) PO SCH (07:51)
[2023-11-09] MEDS: Ondansetron 4 MG Tab.DIS PO PRN (08:53)
[2023-11-09] MEDS: Aspirin 81 MG Tab.Chew PO SCH (08:58)
[2023-11-09] MEDS: FLUDROCORTISONE 0.1 MG PO SCH (08:59)
[2023-11-09] MEDS ORDERED: Non-Formulary Medication 1 Each (Aspirin [Aspirin] 81 MG Tab.Chew) PO SCH (09:00)
[2023-11-09] MEDS ORDERED: Non-Formulary Medication 1 Each (Zinc [Zinc] 50 MG Tablet) PO SCH (09:00)
[2023-11-09] MEDS: Folic Acid 1 MG Tab (PTOM) PO SCH (09:00)
[2023-11-09] MEDS: ZINC 50 MG PO SCH (09:01)
[2023-11-10] MEDS ORDERED: PREDNISONE 1 MG PO SCH (09:00)
== END 2023-11-09 10:03 ==
LOC: JP.ED 06:05 → JP.MS 12:05 → INTOOBSV 12:05
PROVIDERS: ADMIT Internal Medicine; ATTEND Internal Medicine
DX: S82.831A Other fracture of upper and lower end of right fibula, initial encounter for closed fracture (principal); G61.81 Chronic inflammatory demyelinating polyneuritis; K90.0 Celiac disease; F32.A Depression, unspecified; K21.9 Gastro-esophageal reflux disease without esophagitis; D86.0 Sarcoidosis of lung; Z86.718 Personal history of other venous thrombosis and embolism; Z79.82 Long term (current) use of aspirin; Z79.899 Other long term (current) drug therapy; W19.XXXA Unspecified fall, initial encounter
CPT/HCPCS: 36415; 70450; 71046; 73610; 80053; 81001; 85025; 96374; 99285; A9270; J1885; J7512; Q0162; G0378

== ENCOUNTER 2024-01-15 14:24 | Emergency (ER) | payer MEDICARE ==
[2024-01-15 14:33] VITALS: BP 151/78; PULSE 92
== END 2024-01-15 19:19 ==
LOC: JP.ED 14:24
DX: R60.0 Localized edema (principal); K21.9 Gastro-esophageal reflux disease without esophagitis; Z86.16 Personal history of COVID-19; Z90.49 Acquired absence of other specified parts of digestive tract; Z95.5 Presence of coronary angioplasty implant and graft; Z79.1 Long term (current) use of non-steroidal anti-inflammatories (NSAID); Z79.52 Long term (current) use of systemic steroids; Z79.899 Other long term (current) drug therapy; Z79.82 Long term (current) use of aspirin
CPT/HCPCS: 93971-LT; 99285